=== PATIENT | female | born 1985 | race African-American/Black ===

== ENCOUNTER 2021-04-01 13:54 | Emergency (ER) | payer OTHER, SELFPAY ==
[2021-04-01 13:58] VITALS: BP 137/68; PULSE 99; RESP 16; TEMP 36.8; O2SAT 100; BMI 52.7
--- NOTE | 2021-04-01 14:31 | ED.PREGNANCY ---
HPI - General Chief complaint: OB Stated complaint: Back pain 31 weeks Time Seen by Provider: 04/01/21 14:29 Source: patient Mode of arrival: ambulatory Limitations: no limitations History of Present Illness HPI Narrative: 35-year-old female currently 31 weeks here with complaints of 2 hours of lower back pain with pelvic cramping and pressure. No vaginal bleeding, urinary symptoms, vomiting, diarrhea, fevers or chills. Patient is due 913 for a scheduled . She is followed by [facility]. She is . She does have a history of high blood pressure and is on nifedipine, depression, iron deficiency anemia and GERD. Related Data Allergies Allergy/AdvReac Type Severity Reaction Status Date / Time No Known Allergies Allergy Verified 04/01/21 14:04 Review of Systems Review of Systems: Yes all other systems are reviewed and are negative Constitutional: Constitutional: Reports no additional constitutional complaints, Denies body ache(s), Denies chills, Denies fever(s), Denies headache(s) and Denies weakness Eyes: Eyes: Reports no additional eye complaints and Denies change in vision ENT: Reports system reviewed and no additional complaints, except as documented, Denies dizziness, Denies headache(s), Denies nasal congestion, Denies nasal discharge and Denies neck pain Cardiovascular: Cardiovascular: Reports no additional cardiovascular complaints, Denies chest pain, Denies leg edema and Denies dyspnea Respiratory: Respiratory: Reports no additional respiratory complaints, Denies cough and Denies dyspnea Gastrointestinal: Gastrointestinal: Reports no additional gastrointestinal complaints, Denies abdominal pain, Denies diarrhea, Denies nausea and Denies vomiting Genitourinary: Genitourinary: Reports no additional female genitourinary complaints, Denies abnormal vaginal bleeding, Denies urinary incontinence and Denies vaginal discharge Comments: Pelvic pressure and cramping Musculoskeletal: Musculoskeletal: Reports no additional musculoskeletal complaints, Reports back pain, Denies arthralgias, Denies joint swelling, Denies neck pain, Denies numbness and Denies tingling Integumentary/Breasts: Skin/Breast: Reports system reviewed and no additional complaints, except as docu and Denies rash Neurologic: Reports system reviewed and no additional complaints, except as documented, Denies Abnormal speech present, Denies dizziness, Denies headache(s), Denies numbness, Denies tingling and Denies weakness PMFSH Past Medical History Attestation statement: The following information was validated with the patient. Source: old records reviewed and nursing notes reviewed Medical History Depression Hypertension Social History Social History Advance Directives: No Advance Directives Information Provided: Yes Patient : Yes Physical Exam Vital Signs: Vital Signs: Last Vital Signs Temp 98.3 F 04/01/21 13:58 Pulse 99 04/01/21 13:58 Resp 16 04/01/21 13:58 BP 137/68 04/01/21 13:58 Pulse Ox 100 04/01/21 13:58 Body Mass Index 52.7 Const: General: cooperative, healthy appearing, comfortable and no acute distress Orientation/consciousness: patient oriented x3 Limitations: no limitations HENMT: Head: Yes normal to inspection Ears: hearing grossly normal bilaterally General nose exam: Normal external nose present Face and sinus: Yes normal facial exam Mouth: Normal oral and palatal mucosa present Throat: Yes posterior oropharynx normal Eyes: General: appearance normal, both eyes and all related structures Pupils: Equal, round and reactive pupils present Neck: Neck: Yes normal visual inspection Chest: Chest palpation & inspection: normal inspection of the chest Resp: Effort & Inspection: normal respiratory effort Auscultation: clear to auscultation bilaterally Cardio: Rate: regular rate Rhythm: regular rhythm Peripheral pulses: Peripheral pulses 2+ throughout GI: Inspection: Yes normal to inspection Palpation (GI): Soft to palpation and nontender Auscultation: normal bowel sounds : Other: Cervix closed No bleeding Extractive Metallurgist steve Back/Spine/Pelvis: Thoracic/Lumbar Spine: thoracic and lumbar spine normal to inspection Skin: General skin exam: no rashes or lesions noted Neuro: General: patient oriented x3, no focal motor deficits and normal sensation to monofilament Cranial nerves: Yes Equal, round and reactive pupils present Cognition (Neuro): normal cognition Speech: No Abnormal speech present Gait exam (Neuro): Normal gait present Motor exam (neuro): 5/5 motor strength present throughout Extrem: General: Yes normal to inspection, Yes no pedal edema and Yes no calf tenderness Course Course Course Narrative: [id number]-old female currently 31 weeks here with complaints of low back pain, pelvic cramping and pressure for the last 2 hours with no associated vaginal bleeding. On sterile exam cervix closed (community engagement representative steve). No focal abdominal pain. Hemodynamically stable. heart tones 150. Patient followed by [facility] OB. Concern for labor. Will call and discuss with Ob-called transfer line. 1505-Call back from [facility] transfer line. Spoke to Dr. Villalba who accepted patient for rule out labor. Patient was offered an ambulance and it was strongly recommended that she go to via ambulance. She declined this. Patient to go direct there. Discharge Plan Discharge Clinical Impression: Premature labor Patient Disposition: [facility] Transfer Details: [facility]-w2 Instructions: Labor (ED) Additional Instructions: go direct to [facility] w2-Dr Villalba
== END 2021-04-01 15:35 | disposition short-term general hospital (02) ==
PROVIDERS: Emergency Provider Emergency Medicine
DX: O60.03 Preterm labor without delivery, third trimester (principal); O99.013 Anemia complicating pregnancy, third trimester; D50.9 Iron deficiency anemia, unspecified; O16.3 Unspecified maternal hypertension, third trimester; O09.523 Supervision of elderly multigravida, third trimester; Z3A.31 31 weeks gestation of pregnancy; Z79.899 Other long term (current) drug therapy
CPT/HCPCS: 99285

== ENCOUNTER 2022-08-13 09:03 | Emergency (ER) | payer OTHER, SELFPAY ==
[2022-08-13 09:06] VITALS: BP 136/85; PULSE 76; RESP 18; TEMP 36.6; O2SAT 99; BMI 52.4
--- NOTE | 2022-08-13 09:36 | ED.BACK ---
HPI - Back Pain/Injury General Chief Complaint: Back Pain/Injury Stated Complaint: Back Spasms Hip Pain Time Seen by Provider: 08/13/22 09:18 Source: patient Mode of arrival: ambulatory Limitations: no limitations History of Present Illness HPI Narrative: 37yoF c PMHx of HTN, Depression and chronic back pain with sciatica was presenting to the ER with complaints of atraumatic lower back pain radiating to her right thigh with right lateral aspect thigh numbness. She reports that this has been present for approximately 2-3 days and is worsening. She reports she has been taking ibuprofen every 6 hours and Tylenol as well and no symptomatic relief. She reports she has had the symptoms in the past. The right side numbness is new. She reports she can feel her leg although it just feels numb internally in one spot of the thigh. Otherwise she denies any fevers, chills, chest pain or shortness of breath, flank pain, abdominal pain, dysuria, hematuria, abnormal vaginal discharge, black or bloody stools, urinary or bowel incontinence or retention, saddle anesthesias, recent falls or trauma, history of IV drug use, rashes or any other symptoms complaints or concerns at this time. MD elicited complaint: back pain Pertinent past history: prior back pain Onset (ago): day(s) (2-3 days worse today) Timing: constant Severity: moderate Similar Symptoms Previously: Yes Quality: aching and spasming Radiation: left upper leg Exacerbating factors: movement, sitting upright, walking and lifting Relieving factors: none Context: unknown Associated symptoms: numbness (Right Thigh lateral aspect ) Treatments prior to arrival: NSAIDS and acetaminophen Work related injury: No Related Data Previous Rx's Medication Instructions Recorded cyclobenzaprine 10 mg tablet 10 mg PO Q8H #14 tabs 08/13/22 ibuprofen 800 mg tablet 800 mg PO Q8H PRN pain #14 tabs 08/13/22 lidocaine HCl 4 % topical cream 1 appl topical BID PRN pain #120 08/13/22 (Aspercreme (lidocaine HCl)) grams oxycodone 5 mg tablet 5 mg PO Q6H PRN pain #14 tabs 08/13/22 prednisone 20 mg tablet 40 mg PO DAILY inflammation 5 days 08/13/22 #10 tabs Allergies Allergy/AdvReac Type Severity Reaction Status Date / Time No Known Allergies Allergy Verified 04/01/21 14:04 Review of Systems Review of Systems: Constitutional : No trauma, No Weight loss, No Fever, No Chills, ENT/Mouth : No Hearing loss, No Ear Pain, No Nasal Congestion, No Sinus Pain, No Hoarseness, No sore throat, No Rhinorrhea, No Swallowing Difficulty Cardiovascular : No Chest Pain, No SOB Respiratory : No Cough, No Dyspnea Gastrointestinal : No Nausea, No Vomiting, No Diarrhea, No abdominal Pain, No Hematochezia, No Melena Genitourinary : No Dysuria, No Urinary Frequency, No Hematuria, No Urinary or Bowel Incontinence/retention Musculoskeletal : + Back pain, No neck pain, No joint stiffness, No joint swelling Skin : No Skin Lesions, No rash or signs of infection Neuro : No Weakness, + right leg/thigh radiation, + Numbness, No headache, no loss of bowel or bladder incontinence, no saddle anesthesia, Focal weakness Denies history of IV drug usage. Yes all other systems are reviewed and are negative PMFSH Past Medical History Attestation statement: The following information was validated with the patient. Source: old records reviewed and nursing notes reviewed Medical History Depression Hypertension Social History Social History Advance Directives: No Advance Directives Information Provided: No Physical Exam Vital Signs: Vital Signs: Last Vital Signs Temp 97.9 F 08/13/22 09:06 Pulse 76 08/13/22 09:06 Resp 18 08/13/22 09:06 BP 136/85 08/13/22 09:06 Pulse Ox 99 08/13/22 09:06 O2 Del Method 08/13/22 09:06 BMI result Body Mass Index 52.4 vital signs have been reviewed as normal and appeared to be correct. Blood pressure normal. Heart rate normal. Respiration rate normal. Temperature normal. Oxygen saturation normal. Appearance: Alert. Oriented X3. No acute distress. Head: Normal external exam. Normocephalic. Atraumatic. No Ingram signs noted. No raccoon eyes noted Eyes: PERRLA. EOMI. Conjunctiva and sclera normal. Eyelids normal. ENT: EAC normal. TM's Normal. Pharynx normal. Uvula midline. Moist mucous membranes. No trismus noted. No drooling noted. No muffled voice noted. Neck: Normal inspection. Neck supple. FROM. No adenopathy. Thyroid Normal. No meningeal signs. No neck mass noted. CVS: Normal heart rate and rhythm. Heart sound normal. No murmurs noted. Pulses normal throughout. Respiratory: No respiratory distress. Painless inspiration. Breath sounds normal. No wheezes/rales/rhonchi noted. Chest nontender. No accessory muscle usage noted or decreased air movement noted. Abdomen: Soft and nontender. Bowel sounds normal in all 4 quadrants. No distention noted. No organomegaly noted. No visible injury noted. Back: No CVA tenderness. Full range of motion noted. No obvious deformities, or edema. Mild para-spinal muscular tenderness from lumbar region to coccyx. Full ROM in back and lower extremities. 5/5 strength hip extension/flexion, abduction, adduction. Mild Lumbar pain with hip flexion against resistance. Straight leg raise test negative on right; Straight leg raise test negative on left; Reflexes normal ankle and knee bilaterally; EHL motor strength normal bilaterally. No rashes/lesion/induration/fluctuance or signs infection noted. Skin: Skin warm and dry. Normal skin color. Normal skin turgor. No rashes/lesions/lacerations noted. Extremities: No lower extremity edema. Extremities exhibit normal range of motion. Extremities nontender. Neuro: Oriented X 3. No motor deficit. No sensory deficit. Reflexes normal. Patient has a normal steady gait. Course Course Course Narrative: Pt c likely muscular pain, but could be herniated disc. Neuro exam shows no deficits. Not c/w AAA/epidural abscess/dissection.No high risk Hx (Incont, fever, immunosupp, recent surgery/LP, coag, signif trauma, wt loss, puls mass, hx/o Ca, TB, or IVDU) to warrant MRI/CT today. Not c/w Pyelo/UTI/kidney stone/spinal fx. Not cauda equina syndrome. Imaging not currently indicated. DC c meds and f/u. MDM - Back Pain/Injury Medical Records Attestation: I reviewed the patient's medical records. Discharge Plan Discharge Clinical Impression: Lumbar radiculopathy Patient Disposition: Home, Self-Care Instructions: Lumbar Radiculopathy (ED), Lower Back Exercises (ED) Prescriptions: New cyclobenzaprine 10 mg tablet 10 mg PO Q8H Qty: 14 0RF ibuprofen 800 mg tablet 800 mg PO Q8H PRN (Reason: pain) Qty: 14 0RF oxycodone 5 mg tablet 5 mg PO Q6H PRN (Reason: pain) Qty: 14 0RF Rx Instructions: Partial Fill upon patient request. lidocaine HCl [Aspercreme (lidocaine HCl)] 4 % cream 1 appl topical BID PRN (Reason: pain) Qty: 120 0RF prednisone 20 mg tablet 40 mg PO DAILY 5 Days Qty: 10 0RF Referrals: Rosamaria Donato MD [Primary Care Provider] - (your pcp) Stand Alone Forms: Work/School Release
== END 2022-08-13 09:49 | disposition home or self-care (01) ==
PROVIDERS: Emergency Provider Student in an Organized Health Care Education/Training Program; PCP Family Medicine
DX: M54.16 Radiculopathy, lumbar region (principal); M62.838 Other muscle spasm; M54.50 Low back pain, unspecified; Z79.899 Other long term (current) drug therapy
CPT/HCPCS: 99282

== ENCOUNTER 2023-08-09 07:42 | Emergency (ER) | payer OTHER, SELFPAY ==
--- NOTE | ~2023-08-09 | XR_ITS ---
EXAMINATION: Right shoulder and Right elbow. CLINICAL INDICATION: Pain. COMPARISON: None. TECHNIQUE: Right elbow 3 views. Right shoulder 3 views. FINDINGS: RIGHT SHOULDER: The glenohumeral and AC joint alignment is normal. The joint space is maintained normal. No acute fracture, dislocation or loose body seen. The soft tissues are normal. RIGHT ELBOW: There is no visible acute fracture, dislocation or subluxation. No joint effusion seen. XR/XR shoulder RT min 2V IMPRESSION: Unremarkable right elbow. Unremarkable right shoulder.
--- NOTE | ~2023-08-09 | XR_ITS ---
EXAMINATION: Right shoulder and Right elbow. CLINICAL INDICATION: Pain. COMPARISON: None. TECHNIQUE: Right elbow 3 views. Right shoulder 3 views. FINDINGS: RIGHT SHOULDER: The glenohumeral and AC joint alignment is normal. The joint space is maintained normal. No acute fracture, dislocation or loose body seen. The soft tissues are normal. RIGHT ELBOW: There is no visible acute fracture, dislocation or subluxation. No joint effusion seen. XR/XR elbow RT min 3V IMPRESSION: Unremarkable right elbow. Unremarkable right shoulder.
[2023-08-09 07:45] VITALS: BP 167/99; PULSE 82; RESP 16; TEMP 36.7; O2SAT 99; BMI 53.3
--- NOTE | 2023-08-09 07:56 | ED.GENADULT ---
HPI - General Adult General Chief complaint: Extremity Injury, Lower Stated complaint: R Shoulder Elbow Pain S/P Injury 08/07/23 Time Seen by Provider: 08/09/23 07:55 Source: patient Mode of arrival: ambulatory Limitations: no limitations History of Present Illness HPI narrative: Patient is a 38 year old assigned female at with a history of HTN presenting to the emergency department today with right shoulder and elbow pain. Patient states that 2 days ago she was sitting on the toilet at a hotel when a mirror fell off the wall and landed on her right shoulder and right elbow. Patient denies any head strike or loss of consciousness from the incident. Patient denies any dizziness, lightheadedness, abdominal pain, nausea, vomiting, fever, chills, blurry vision, double vision, loss of vision, chest pain, difficulty breathing, shortness of breath, back pain, night sweats, pain with urination, increased urinary frequency, increased urinary urgency, blood in her urine or stool, syncope or a near syncopal episode, bowel incontinence, bladder incontinence, bowel retention, bladder retention, or any other complaints at this time. Onset (ago): day(s) (2) Location: right and upper extremity Severity: mild Severity scale (1-10): 4 Quality: aching and dull Pain Consistency: constant Relieving factors: none Exacerbating factors: movement Associated symptoms: denies other symptoms Treatments prior to arrival: none Related Data Previous Rx's Medication Instructions Recorded cyclobenzaprine 10 mg tablet 10 mg PO Q8H #14 tabs 08/13/22 ibuprofen 800 mg tablet 800 mg PO Q8H PRN pain #14 tabs 08/13/22 lidocaine HCl 4 % topical cream 1 appl topical BID PRN pain #120 08/13/22 (Aspercreme (lidocaine HCl)) grams oxycodone 5 mg tablet 5 mg PO Q6H PRN pain #14 tabs 08/13/22 prednisone 20 mg tablet 40 mg (2 x 20 mg) PO DAILY 08/13/22 inflammation 5 days #10 tabs cyclobenzaprine 5 mg tablet 5 mg PO TID PRN muscle spasm 7 08/09/23 days #21 tabs Allergies Allergy/AdvReac Type Severity Reaction Status Date / Time No Known Allergies Allergy Verified 04/01/21 14:04 Review of Systems Constitutional: Constitutional: Reports no additional constitutional complaints, Denies chills, Denies fever(s) and Denies night sweats Eyes: Eyes: Reports no additional eye complaints, Denies blurry vision, Denies change in vision, Denies diplopia, Denies eye discharge, Denies loss of vision and Denies eye pain ENT: Denies dizziness Cardiovascular: Cardiovascular: Reports no additional cardiovascular complaints, Denies chest pain, Denies lightheadedness, Denies Loss of Consciousness and Denies dyspnea Respiratory: Respiratory: Reports no additional respiratory complaints and Denies dyspnea Gastrointestinal: Gastrointestinal: Reports no additional gastrointestinal complaints, Denies abdominal pain, Denies melena, Denies hematochezia, Denies change in bowel habits and Denies change in stool character Genitourinary: Genitourinary: Denies hematuria, Denies urinary frequency, Denies dysuria, Denies urinary incontinence, Denies urinary hesitancy and Denies urinary urgency Musculoskeletal: Musculoskeletal: Reports no additional musculoskeletal complaints, Denies numbness and Denies tingling Comments: right shoulder pain, right elbow pain Neurologic: Denies dizziness, Denies loss of vision, Denies numbness and Denies tingling Psychiatric: Psychiatric: Reports no additional psychiatric complaints Endocrine: Endocrine: Reports no additional endocrine complaints Hematologic/Lymphatic: Hematologic/Lymphatic: Reports no additional hematologic/lymphatic complaints Allergic/Immunologic: Allergic/Immunologic: Reports no additional allergic/immunologic complaints PMFSH Past Medical History Attestation statement: The following information was validated with the patient. Source: old records reviewed and nursing notes reviewed Medical History Depression Hypertension Social History Social History Smoked in Last 30 Days: Yes Use of substances other than those prescribed or required for medical reasons: No Advance Directives: Yes Advance Directives Information Provided: Yes Advance Directives on File: No Physical Exam ED Vital Signs: Vital Signs - 24 hr 08/09/23 07:45 08/09/23 08:56 Temperature 98.0 F Pulse Rate 82 76 Respiratory Rate 16 18 Blood Pressure 167/99 H 144/102 H Pulse Oximetry 99 100 Oxygen Delivery Method Room Air Room Air BMI result Body Mass Index 53.3 Const General: cooperative, no acute distress, alert and awake Nutritional Appearance: well nourished Orientation/consciousness: patient oriented x3 Limitations: no limitations HENMT Head: Yes normal to inspection and Yes atraumatic Ears: hearing grossly normal bilaterally and external ears normal General nose exam: Normal external nose present, no nasal discharge noted and no epistaxis Face and sinus: Yes normal facial exam, No abrasion and No laceration Mouth: Normal oral and palatal mucosa present, no drooling and no muffled voice Eyes General: appearance normal, both eyes and all related structures Periorbital: periorbital findings normal Eyelids: Yes eyelids normal Conjunctivae: conjunctivae normal Pupils: Equal, round and reactive pupils present EOM: EOMs intact bilaterally Neck Neck: Yes normal visual inspection, Yes full ROM and Yes no lymphadenopathy Chest Chest palpation & inspection: normal inspection of the chest Resp Effort & Inspection: normal respiratory effort and able to speak in complete sentences GI Inspection: Yes normal to inspection Neuro General: patient oriented x3 and moves all extremities Cranial nerves: Yes Equal, round and reactive pupils present Cognition (Neuro): normal cognition Motor exam (neuro): 5/5 motor strength present throughout Sensory Exam: Normal double simultaneous stimulation for sensation Coordination: [id number] test normal Extrem Other: pain with palpation to the right shoulder and right elbow General: Yes normal to inspection, Yes full ROM and Yes capillary refill normal Psych Appearance: grossly normal Mental Status: mental status grossly normal Affect: normal affect Attitude: cooperative Thought process: Normal thought process present Thought content: Normal thought content present Insight: Good insight present (Psych) Medications Administered Discontinued Medications Generic Name Dose Route Start Last Admin Trade Name Freq PRN Reason Stop Dose Admin Cyclobenzaprine HCl 5 mg 08/09/23 09:06 08/09/23 09:15 Cyclobenzaprine Hcl 5 Mg Tablet PO 08/09/23 09:07 5 mg ONCE ONE Administration Ketorolac Tromethamine 15 mg 08/09/23 09:06 08/09/23 09:16 Ketorolac Tromethamine 15 Mg/Ml Vial IM 08/09/23 09:07 15 mg ONCE ONE Administration Medical Decision Making Medical Decision Making [facility] Narrative: Patient is a 38 year old assigned female at with no reported medical history presenting to the emergency department today with right shoulder and right elbow pain. Patient's physical exam was as noted in the physical exam portion of this note. Patient's right knee and right shoulder x-rays showed no acute process. I explained my physical exam findings as well as all test results to the patient. I answered all questions asked by the patient. I stressed the importance of the patient taking her medication as prescribed. I stressed the importance of the patient following up with her primary care provider. I stressed the importance of the patient returning to the emergency department immediately if her symptoms were to worsen or if she were to develop any dizziness, shortness of breath, difficulty breathing, chest pain, blurry vision, loss of vision, nausea, vomiting, abdominal pain, fever, chills, back pain, or any other complaints. Patient verbalized agreement and understanding with this treatment plan and discharge. Differential Diagnosis Differential Diagnoses: The differential diagnosis associated with the presentation includes Contusion Fracture Sprain Strain Independent Interpretation I performed an independent interpretation of an: Plain X-Ray Interpretation: My interpretation is in agreement with the radiologist's impression of these imaging studies. EXAMINATION: Right shoulder and Right elbow. CLINICAL INDICATION: Pain. COMPARISON: None. TECHNIQUE: Right elbow 3 views. Right shoulder 3 views. FINDINGS: RIGHT SHOULDER: The glenohumeral and AC joint alignment is normal. The joint space is maintained normal. No acute fracture, dislocation or loose body seen. The soft tissues are normal. RIGHT ELBOW: There is no visible acute fracture, dislocation or subluxation. No joint effusion seen. XR/XR shoulder RT min 2V IMPRESSION: Unremarkable right elbow. Unremarkable right shoulder. Dictated By: Fred Senior MD Signed By: Electronically signed by Fred Senior MD 08/09/23 1050 EXAMINATION: Right shoulder and Right elbow. CLINICAL INDICATION: Pain. COMPARISON: None. TECHNIQUE: Right elbow 3 views. Right shoulder 3 views. FINDINGS: RIGHT SHOULDER: The glenohumeral and AC joint alignment is normal. The joint space is maintained normal. No acute fracture, dislocation or loose body seen. The soft tissues are normal. RIGHT ELBOW: There is no visible acute fracture, dislocation or subluxation. No joint effusion seen. XR/XR elbow RT min 3V IMPRESSION: Unremarkable right elbow. Unremarkable right shoulder. Dictated By: Fred Senior MD Signed By: Electronically signed by Fred Senior MD 08/09/23 1053 Radiology Impression Discussion of test interpretation with radiology: I have reviewed the radiologist's reading. Prescription Management I considered prescription management with: Pain Medication (patient prescribed pain medication) Discharge Plan Discharge Clinical Impression: Acute shoulder pain, Elbow pain Patient Disposition: Home, Self-Care Instructions: Shoulder Pain (ED), Arm Pain (ED) Additional Instructions: Follow up with your primary care provider. Return to the emergency department immediately if your symptoms worsen or if you develop any dizziness, shortness of breath, difficulty breathing, chest pain, blurry vision, loss of vision, nausea, vomiting, abdominal pain, fever, chills, back pain, or any other complaints. Prescriptions: New cyclobenzaprine 5 mg tablet 5 mg PO TID PRN (Reason: muscle spasm) 7 Days Qty: 21 0RF No Action cyclobenzaprine 10 mg tablet 10 mg PO Q8H Qty: 14 0RF ibuprofen 800 mg tablet 800 mg PO Q8H PRN (Reason: pain) Qty: 14 0RF oxycodone 5 mg tablet 5 mg PO Q6H PRN (Reason: pain) Qty: 14 0RF Rx Instructions: Partial Fill upon patient request. lidocaine HCl [Aspercreme (lidocaine HCl)] 4 % cream 1 appl topical BID PRN (Reason: pain) Qty: 120 0RF prednisone 20 mg tablet 40 mg PO DAILY 5 Days Qty: 10 0RF Referrals: Rosamaria Donato MD [Primary Care Provider] - Stand Alone Forms: Work/School Release Interventions: ED Discharge Assessment Last Done: 08/09/23 11:16 Discharge Date/Time: 08/09/23 11:17 Print Language: Bhutanese
[2023-08-09 08:56] VITALS: BP 144/102; PULSE 76; RESP 18; O2SAT 100
[2023-08-09] MEDS: Cyclobenzaprine HCl 5 MG TABLET PO (09:15)
[2023-08-09] MEDS: Ketorolac Tromethamine 15 MG/ML VIAL IM (09:16)
== END 2023-08-09 11:17 | disposition home or self-care (01) ==
PROVIDERS: Emergency Provider Emergency Medicine; PCP Family Medicine
DX: M25.511 Pain in right shoulder (principal); M25.521 Pain in right elbow
CPT/HCPCS: 73030; 73080; 96372; 99284; J1885

== ENCOUNTER 2023-09-10 10:33 | Emergency (ER) | payer OTHER, SELFPAY ==
--- NOTE | ~2023-09-10 | XR_ITS ---
EXAMINATION: XR HAND, RIGHT CLINICAL INFORMATION: Pain. COMPARISON: None available. TECHNIQUE: PA, lateral, and oblique views of the right hand. FINDINGS: An avulsion fragment is noted at the lateral margin of the base of the first proximal phalanx, with intra-articular extension. This is somewhat smoothly corticated. No dislocation is seen. The proximal and distal carpal rows are intact. There is a neutral ulnar variance. No focal soft tissue swelling, gas or foreign body is seen. XR/XR hand RT min 3V IMPRESSION: An avulsion fragment with intra-articular extension is seen at the base of the proximal phalanx of the right thumb. This is somewhat well corticated, and it is of indeterminate chronicity. Please correlate with clinical findings.
[2023-09-10 10:42] VITALS: BP 179/108; PULSE 84; RESP 20; TEMP 36; O2SAT 99; BMI 52.6
--- NOTE | 2023-09-10 12:51 | ED.EXTPRO ---
HPI - Extremity Problem General Chief complaint: Extremity Injury, Lower Stated complaint: R hand injury Time Seen by Provider: 09/10/23 11:27 Source: patient Mode of arrival: ambulatory Limitations: no limitations History of Present Illness HPI Narrative: patient is a 38-year-old female who presents emergency department for evaluation of pain to the right thumb and index finger. She reports 2 days ago it accidentally got slammed in the door of her home resulting in pain and swelling. She has a small laceration to the ulnar aspect of the distal index finger with no active bleeding. Denies numbness tingling or cold sensation to the hand. Related Data Previous Rx's Medication Instructions Recorded cyclobenzaprine 10 mg tablet 10 mg PO Q8H #14 tabs 08/13/22 ibuprofen 800 mg tablet 800 mg PO Q8H PRN pain #14 tabs 08/13/22 lidocaine HCl 4 % topical cream 1 appl topical BID PRN pain #120 08/13/22 (Aspercreme (lidocaine HCl)) grams oxycodone 5 mg tablet 5 mg PO Q6H PRN pain #14 tabs 08/13/22 prednisone 20 mg tablet 40 mg (2 x 20 mg) PO DAILY 08/13/22 inflammation 5 days #10 tabs cyclobenzaprine 5 mg tablet 5 mg PO TID PRN muscle spasm 7 08/09/23 days #21 tabs Allergies Allergy/AdvReac Type Severity Reaction Status Date / Time latex Allergy Hives Verified 09/10/23 10:44 Review of Systems Review of Systems: Yes all other systems are reviewed and are negative PMFSH Past Medical History Attestation statement: The following information was validated with the patient. Source: old records reviewed Medical History Depression Hypertension Social History Social History Advance Directives: No Advance Directives Information Provided: No Physical Exam Vital Signs: Vital Signs: Last Vital Signs Temp 96.8 F 09/10/23 10:42 Pulse 84 09/10/23 10:42 Resp 20 09/10/23 10:42 BP 179/108 H 09/10/23 10:42 Pulse Ox 99 09/10/23 10:42 O2 Del Method Room Air 09/10/23 10:42 BMI result Body Mass Index 52.6 Appearance: Alert.?Oriented to person, place and time. No acute distress.?Normal affect. Neck: Normal inspection.? Neck supple.?? CVS: Heart sounds normal. Normal heart rate and rhythm.? Pulses normal.?? Respiratory: No respiratory distress.? Lung sounds clear to auscultation bilaterally?? Skin: Skin warm and dry.? Normal skin color. Right index finger proximal ulnar aspect 1 cm laceration with no active bleeding, superficial, not amenable to suture repair Extremities: tenderness to palpation andlocalized swelling to the base of the right thumb and 2nd digit. Thumb with decreased AROM, index finger with mildly decreased flexion. Neuro: Moves all extremities spontaneously. Sensation intact bilaterally. Ambulates with normal steady gait. Medical Decision Making Medical Decision Making MDM Narrative: Patient is a 38-year-old female who presents emergency department for evaluation of traumatic pain to the right hand as per HPI. No obvious deformity upon examination she does have tenderness to palpation at the base of the thumb and diffuse swelling and tenderness upon palpation to the index finger which has mildly decreased AROM in a laceration that appears well healing and not amenable to any repair. XR reveals an avulsion fragment with intra-articular extension seen at the base of the proximal phalanx of the right thumb. Extremities neurovascularly intact distally Reviewed these findings with patient. She was placed of thumb spica. Advised rest, ice, elevation, acetaminophen / ibuprofen for pain and outpatient follow-up with hand specialist; Dr. Ellis. reviewed worrisome signs and symptoms that would warrant re-evaluation in the emergency department. All questions answered. Stable for discharge. Differential Diagnosis Differential Diagnoses: The differential diagnosis associated with the presentation includes ( as noted above) Consult Healthcare Provider Management of the patient was discussed with: Breakdown Person ( orthopedics) Independent Interpretation I performed an independent interpretation of an: Plain X-Ray ( I personally interpreted XR imaging and agree with radiologist impression.) Radiology Impression Discussion of test interpretation with radiology: I have reviewed the radiologist's reading. Radiologist Impression: XR/XR hand RT min 3V IMPRESSION: An avulsion fragment with intra-articular extension is seen at the base of the proximal phalanx of the right thumb. This is somewhat well corticated, and it is of indeterminate chronicity. Please correlate with clinical findings. Prescription Management I considered prescription management with: Pain Medication Procedures Orthopedic Splinting/Casting Injury #1: Side: right Upper Extremity Injury Location: hand Upper Extremity Immobilizer: thumb spica Discharge Plan Discharge Clinical Impression: Closed fracture of proximal phalanx of thumb Qualifiers: Encounter type: initial encounter Laterality: right Patient Disposition: Home, Self-Care Instructions: Thumb Fracture (ED) Prescriptions: No Action cyclobenzaprine 10 mg tablet 10 mg PO Q8H Qty: 14 0RF ibuprofen 800 mg tablet 800 mg PO Q8H PRN (Reason: pain) Qty: 14 0RF oxycodone 5 mg tablet 5 mg PO Q6H PRN (Reason: pain) Qty: 14 0RF Rx Instructions: Partial Fill upon patient request. lidocaine HCl [Aspercreme (lidocaine HCl)] 4 % cream 1 appl topical BID PRN (Reason: pain) Qty: 120 0RF prednisone 20 mg tablet 40 mg PO DAILY 5 Days Qty: 10 0RF cyclobenzaprine 5 mg tablet 5 mg PO TID PRN (Reason: muscle spasm) 7 Days Qty: 21 0RF Referrals: Kallie Ellis MD [Physician] - Stand Alone Forms: Work/School Release
[2023-09-10 13:24] VITALS: BP 154/93; PULSE 70; RESP 16; TEMP 36.2; O2SAT 100
== END 2023-09-10 13:29 | disposition home or self-care (01) ==
PROVIDERS: Emergency Provider Emergency Medicine
DX: S62.511A Displaced fracture of proximal phalanx of right thumb, initial encounter for closed fracture (principal); Y29.XXXA Contact with blunt object, undetermined intent, initial encounter; Y93.9 Activity, unspecified; Y92.9 Unspecified place or not applicable; Y99.9 Unspecified external cause status
CPT/HCPCS: 29130; 73130; 99283; 99284

== ENCOUNTER 2023-09-25 10:22 | Emergency (ER) | payer OTHER, SELFPAY ==
--- NOTE | ~2023-09-25 | XR_ITS ---
EXAMINATION: XR LUMBAR SPINE XR SACRUM AND COCCYX CLINICAL INFORMATION: Back pain, fall. COMPARISON: None available. TECHNIQUE: Three views of the lumbar spine, 3 views of the sacrum and coccyx. FINDINGS: The vertebral bodies and posterior elements are normal. The disc spaces are preserved and the vertebral alignment is normal. The paraspinal soft tissues are normal. There may be a minimally displaced fracture at the sacral-coccyx junction. XR/XR lumbar spine 2-3V IMPRESSION: 1. Possible minimally displaced fracture at the sacral-coccyx junction. 2. Unremarkable examination of the lumbar spine.
--- NOTE | ~2023-09-25 | XR_ITS ---
EXAMINATION: XR LUMBAR SPINE XR SACRUM AND COCCYX CLINICAL INFORMATION: Back pain, fall. COMPARISON: None available. TECHNIQUE: Three views of the lumbar spine, 3 views of the sacrum and coccyx. FINDINGS: The vertebral bodies and posterior elements are normal. The disc spaces are preserved and the vertebral alignment is normal. The paraspinal soft tissues are normal. There may be a minimally displaced fracture at the sacral-coccyx junction. XR/XR sacrum coccyx min 2V IMPRESSION: 1. Possible minimally displaced fracture at the sacral-coccyx junction. 2. Unremarkable examination of the lumbar spine.
[2023-09-25 10:53] VITALS: BP 136/91; PULSE 78; RESP 14; TEMP 37.1; O2SAT 98; BMI 52.5
--- NOTE | 2023-09-25 12:18 | ED.GENADULT ---
HPI - General Adult General Chief complaint: Back Pain/Injury Stated complaint: Fall/Tailbone pain Time Seen by Provider: 09/25/23 12:07 Source: patient Mode of arrival: ambulatory Limitations: no limitations History of Present Illness HPI narrative: 38-year-old female presents with pmh of HTN and depression to ED for low back buttock pain since September 15. patient states she was standing on a chair and she slipped and fell onto her buttock on September 15. Patient denies hitting her head or loss of consciousness. Patient states there was swelling in sacral area that improved with ice pack and Motrin but pain still persists presently. Patient denied any loss of consciousness or any other complaints. Patient states no rectal bleeding, vomiting blood, bloody urine, or abdominal pain. patient denies any urinary / bowel incontinence Related Data Previous Rx's Medication Instructions Recorded cyclobenzaprine 10 mg tablet 10 mg PO Q8H #14 tabs 08/13/22 ibuprofen 800 mg tablet 800 mg PO Q8H PRN pain #14 tabs 08/13/22 lidocaine HCl 4 % topical cream 1 appl topical BID PRN pain #120 08/13/22 (Aspercreme (lidocaine HCl)) grams oxycodone 5 mg tablet 5 mg PO Q6H PRN pain #14 tabs 08/13/22 prednisone 20 mg tablet 40 mg (2 x 20 mg) PO DAILY 08/13/22 inflammation 5 days #10 tabs cyclobenzaprine 5 mg tablet 5 mg PO TID PRN muscle spasm 7 08/09/23 days #21 tabs naproxen 500 mg tablet 500 mg PO BID PRN pain 7 days #14 09/25/23 tabs Allergies Allergy/AdvReac Type Severity Reaction Status Date / Time latex Allergy Hives Verified 09/10/23 10:44 Review of Systems Review of Systems: Low back pain buttock pain Yes all other systems are reviewed and are negative PMFSH Past Medical History Onset Date is defined in the Problem List Problems that require an onset date and time if occurred within 24 hrs of arrival to the ED Aortic Dissection and Rupture; Neurologic impairment; Cardiopulmonary Arrest; Endotracheal Intubation; Insertion or Replacement of Mechanical Circulatory Assist Device Medical History Depression Hypertension Social History Social History Advance Directives: No Physical Exam ED Vital Signs: Vital Signs - 24 hr 09/25/23 10:53 Temperature 98.7 F Pulse Rate 78 Respiratory Rate 14 Blood Pressure 136/91 H Pulse Oximetry 98 Oxygen Delivery Method Room Air BMI result Body Mass Index 52.5 Const General: cooperative, healthy appearing, comfortable, no acute distress, well developed, alert, awake and Physically active Orientation/consciousness: oriented to person, oriented to place, oriented to time and patient oriented x3 HENMT Head: Yes normal to inspection, Yes No palpable skull fracture present, Yes normocephalic and Yes atraumatic Eyes General: appearance normal, both eyes and all related structures Neck Neck: Yes normal visual inspection, Yes full ROM, Yes no lymphadenopathy, Yes no meningeal signs, Yes trachea midline, Yes supple, No anterior neck swelling and No tender Chest Chest palpation & inspection: normal inspection of the chest and normal palpation of entire chest wall Resp Effort & Inspection: normal respiratory effort and able to speak in complete sentences Auscultation: clear to auscultation bilaterally Cardio Jugular venous distension: no JVD Heart sounds: S1 normal heart sound present and S2 normal heart sound present GI Inspection: Yes normal to inspection Palpation (GI): Soft to palpation, not firm, nontender, no guarding and not rigid General: No no CVA tenderness Back/Spine/Pelvis Back: No no CVA tenderness and back tenderness (lumbar and sacrum/coccyx tender) Skin General skin exam: no rashes or lesions noted, elasticity normal and turgor normal Neuro General: oriented to person, oriented to place, oriented to time, patient oriented x3, gait normal, tone normal, moves all extremities, Normal light touch and pain sensation, no meningeal signs, no focal motor deficits, CN's II-XI intact bilaterally and normal sensation to monofilament Extrem General: Yes normal to inspection and Yes full ROM Psych Appearance: grossly normal, well kempt and not disheveled Medical Decision Making Medical Decision Making MDM Narrative: 38-year-old female history of depression hypertension presents ED for buttock low back pain after fall onto buttock from a chair September 15. Patient denies any head trauma. Patient denies any urinary / bowel incontinence nausea, vomiting, abdominal pain, rectal bleeding, bloody urine, vomiting blood. Patient denies any paralysis weakness of lower extremities. Patient is sent for x-rays. 2:36pm: patient positive for small sacral coccyx fracture. Negative for any signs of neuro deficits lower extremities. Patient denies any urinary / bowel incontinence. Patient has normal gait. Negative for signs of hematoma on evaluation of spine and sacral coccyx area. Spoke with orthopedic COLLIN Porter who states patient can follow-up with Dr. Day co founder and president for follow-up. Patient is safe for discharge. Patient explained worrisome signs. Differential Diagnosis Differential Diagnoses: The differential diagnosis associated with the presentation includes ( Lumbar spine fracture, sacral coccyx fracture.) Admission/Observation Consideration of admission/observation: Escalation of care including admission/observation considered Consult Healthcare Provider Management of the patient was discussed with: Dental Equipment Repairer ([facility]) Independent Interpretation I performed an independent interpretation of an: Plain X-Ray Radiology Impression Discussion of test interpretation with radiology: I have reviewed the radiologist's reading. External Record Review External record reviewed: Other ( Prior visit) Prescription Management I considered prescription management with: Pain Medication Discharge Plan Discharge Clinical Impression: Closed fracture of sacrum and coccyx Patient Disposition: Home, Self-Care Instructions: Coccyx Injury (ED), Sacral Fracture (ED) Additional Instructions: please follow-up with Dr. Anderson our co founder and president of [facility]. Return to the ED immediately for any urinary / bowel incontinence, weakness / paralysis/numbness of lower extremities, rectal bleeding, vomiting blood, abdominal pain, chest pain, shortness of breath, headache, or any other concerning symptoms. Prescriptions: New naproxen 500 mg tablet 500 mg PO BID PRN (Reason: pain) 7 Days Qty: 14 0RF No Action cyclobenzaprine 10 mg tablet 10 mg PO Q8H Qty: 14 0RF ibuprofen 800 mg tablet 800 mg PO Q8H PRN (Reason: pain) Qty: 14 0RF oxycodone 5 mg tablet 5 mg PO Q6H PRN (Reason: pain) Qty: 14 0RF Rx Instructions: Partial Fill upon patient request. lidocaine HCl [Aspercreme (lidocaine HCl)] 4 % cream 1 appl topical BID PRN (Reason: pain) Qty: 120 0RF prednisone 20 mg tablet 40 mg PO DAILY 5 Days Qty: 10 0RF cyclobenzaprine 5 mg tablet 5 mg PO TID PRN (Reason: muscle spasm) 7 Days Qty: 21 0RF Referrals: Trish Valdez MD [Physician] - (Sacrum-Coccyx fracture) Stand Alone Forms: Work/School Release Interventions: ED Discharge Assessment Last Done: 09/25/23 14:47 Discharge Date/Time: 09/25/23 14:48 Print Language: Somali
== END 2023-09-25 14:48 | disposition home or self-care (01) ==
PROVIDERS: Emergency Provider Emergency Medicine
DX: S32.2XXA Fracture of coccyx, initial encounter for closed fracture (principal); W07.XXXA Fall from chair, initial encounter; Y93.9 Activity, unspecified; Y92.9 Unspecified place or not applicable; Y99.9 Unspecified external cause status; M54.50 Low back pain, unspecified
CPT/HCPCS: 72100; 72220; 99283

== ENCOUNTER 2023-09-28 10:04 | Outpatient (REF) | payer OTHER, SELFPAY ==
--- NOTE | ~2023-09-28 | XR_ITS ---
EXAMINATION: XR HAND, RIGHT CLINICAL INFORMATION: Pain in right hand. Patient states pain 1st and 2nd digit. COMPARISON: Right hand 09/10/2023. TECHNIQUE: Four views of the right hand. FINDINGS: Redemonstration of an avulsion fracture at the lateral aspect of the base of the 1st proximal phalanx with intra-articular extension. Fracture fragment again appears somewhat corticated with smooth margins. Mild degenerative changes in the 1st carpometacarpal joint with joint space narrowing and hypertrophic change. XR/XR hand RT min 3V IMPRESSION: Similar appearance of a mildly displaced avulsion fracture at the lateral aspect of the base of the 1st proximal phalanx with intra-articular extension. Similar appearance of corticated margins of fracture fragment and subjacent margin of proximal phalanx suggesting indeterminate chronicity, age of fracture. Correlation with clinical exam and history recommended to determine further management.
== END 2023-09-28 10:05 | disposition home or self-care (01) ==
LOC: HO.HOSX 10:04
PROVIDERS: Visit Provider Physician Assistant
DX: Z13.89 Encounter for screening for other disorder (principal)

== ENCOUNTER 2023-09-30 14:07 | Outpatient (AMB) | payer OTHER, SELFPAY ==
--- NOTE | 2023-09-30 14:18 | A.OFFVIS_ITS ---
Intake Vital Signs 09/30/23 14:32 Height 5 ft 7 in Weight 335 lb BMI 52.5 Intake Visit Reasons: FC- right hand fx, DOI 09/08 Intake Note: Alverto a 38 year old female presents today for an ER follow up of right hand injury, DOI 09/08/23. Patient reports that she smashed her thumb and index finger in a door. Presented to [facility] the following day due to her pain. Currently her thumb pain has improved, however her main concern is her index finger. States she is unable to fully bend her finger down to make a fist. Numbness to the touch, denies tingling. Allergies latex Allergy (Verified 09/30/23 14:32) Hives HPI FC- right hand fx, DOI 09/08 HPI Details 38-year-old female who presents to the [facility] today for an ER follow-up of right-hand injury s/p smashing her thumb and index finger in a door, 09/10/23. She was seen at ED the next day due to her pain. She currently states she has improvement in her thumb pain however she continues to have pain in her index finger. She reports she is unable to fully bend her finger and experiences pressure down to make a fist. She also c/o numbness in her finger to touch. She denies tingling in her fingers. She has not had any hand injury in the past. 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 Review of Systems Const All systems reviewed & are unremarkable except as noted in HPI and below Physical Exam Vital Signs: BMI result Body Mass Index 52.5 Const General: cooperative, healthy appearing, comfortable, no acute distress, well developed and alert Orientation/consciousness: patient oriented x3 HEENT Head: Yes normal to inspection, Yes normocephalic and Yes atraumatic Eyes General: appearance normal, both eyes and all related structures Resp Effort & Inspection: normal respiratory effort and able to speak in complete sentences Cardio Rate: regular rate Peripheral pulses: Peripheral pulses 2+ throughout GI Palpation (GI): Soft to palpation Skin Lesions: no lesions Rashes: no rashes Neuro General: patient oriented x3 Extrem Other: Right thumb: Normal to inspection. She has tenderness over the MCP joint along the ulnar side and slight discomfort with stress testing. No significant laxity. Right index finger: Tenderness over the PIP joint with some scab abrasion along the radial and ulnar side of finger. She is able to fully extend all of her digits with no lag. She can make a full fist. She is completely flexing her index finger but she can passively reach 90 degrees at MCP, 90 degrees at PIP, and 45 degrees at DIP. Results Reviewed Results Reviewed: Xrays were obtained in the office today and personally reviewed by me of the left hand mildly displaced avulsion fracture at the lateral aspect of the base of the 1st proximal phalanx with intra-articular extension Assessment & Plan Assessment & Plan (1) Stiffness of left hand joint: Code(s): M25.642 - Stiffness of left hand, not elsewhere classified (2) Sprain of ulnar collateral ligament of interphalangeal joint of thumb: Code(s): S63.629A - Sprain of interphalangeal joint of unspecified thumb, initial encounter Plan I demonstrated some ROM exercises with her in the office today and stressed the importance of working with them throughout the day to improve her ROM. She was also given a Velcro thumb spica splint which she will wear with activities only. She was given a onetime prescription for tramadol in the office today. She will contact Dr. Myers for an appointment for her tailbone injury. Orders: Orders XR hand RT min 3V 09/30/23 M79.641 - Pain in right hand OT Evaluation and Treatment 09/30/23 M25.642 - Stiffness of left hand, not elsewhere classified, S63.629A - Sprain of interphalangeal joint of unspecified thumb, initial encounter Medications: New tramadol 50 mg PO BEDTIME 7 days 7 tabs 0RF Patient Instructions: Scribed for Sheridan Thomas PA-C, by James Luu director medical surgical, on 09/30/2023 at 2:30 PM EST. I, Ta-Lisa Meuse, PA-C, have personally reviewed and agree with the information entered by the scribe. Coding Level of Care Code New Pt Level 3 (65467) Diagnoses Stiffness of left hand joint M25.642 Sprain of ulnar collateral ligament of interphalangeal joint of thumb S63.627D
[2023-09-30 14:32] VITALS: BMI 52.5
== END 2023-09-30 14:58 | disposition home or self-care (01) ==
PROVIDERS: Visit Provider Physician Assistant
DX: M25.642 Stiffness of left hand, not elsewhere classified (principal); S63.621A Sprain of interphalangeal joint of right thumb, initial encounter
CPT/HCPCS: 99204

== ENCOUNTER → 2023-09-30 14:07 | Outpatient (BNVA) | payer OTHER, SELFPAY | PROVIDERS: Visit Provider Physician Assistant | DX: S63.6 Other and unspecified sprain of finger(s) (principal); M25.642 Stiffness of left hand, not elsewhere classified | CPT/HCPCS: 73130; 99202 ==

== ENCOUNTER 2023-10-13 09:39 | Outpatient (REF) | payer OTHER, SELFPAY ==
--- NOTE | ~2023-10-13 | XR_ITS ---
EXAMINATION: XR PELVIS CLINICAL INFORMATION: Fracture COMPARISON: 09/25/2023 TECHNIQUE: AP view of the pelvis. FINDINGS: No acute fracture. Pelvic enthesopathy. Sacroiliac joints are preserved. Known probable sacral fracture is better seen on same-day sacral films. XR/XR pelvis min 3V IMPRESSION: Known probable sacral fracture is better seen on same-day sacral films. No acute pelvic fracture
--- NOTE | ~2023-10-13 | XR_ITS ---
EXAMINATION: XR SACRUM AND COCCYX CLINICAL INFORMATION: Sacral fracture COMPARISON: 09/25/2023 TECHNIQUE: 2 views of the sacrum and 2 views of the coccyx were obtained. FINDINGS: Redemonstration of probable age-indeterminate minimally displaced fracture at the sacral coccygeal junction. Sacroiliac joints are preserved. XR/XR sacrum coccyx min 2V IMPRESSION: Redemonstration of probable age-indeterminate minimally displaced fracture at the sacral coccygeal junction.
== END 2023-10-13 09:40 | disposition home or self-care (01) ==
LOC: HO.HOSX 09:39
PROVIDERS: Visit Provider Physical Medicine & Rehabilitation
DX: S32.10XA Unspecified fracture of sacrum, initial encounter for closed fracture (principal); S32.2XXA Fracture of coccyx, initial encounter for closed fracture
CPT/HCPCS: 72190; 72220; 99202

== ENCOUNTER 2023-10-13 11:50 | Outpatient (AMB) | payer OTHER, SELFPAY ==
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
== END 2023-10-13 12:28 | disposition home or self-care (01) ==
PROVIDERS: Visit Provider Physical Medicine & Rehabilitation
DX: S32.2XXA Fracture of coccyx, initial encounter for closed fracture (principal)
CPT/HCPCS: 99204

== ENCOUNTER → 2025-05-04 09:31 | Outpatient (BNV) | payer OTHER, SELFPAY | PROVIDERS: Emergency Provider Emergency Medicine; PCP Family Medicine; Visit Provider Radiology Vascular & Interventional Radiology | DX: M25.511 Pain in right shoulder (principal); X50.0XXA Overexertion from strenuous movement or load, initial encounter | CPT/HCPCS: 73030 ==

== ENCOUNTER 2025-05-04 10:10 | Emergency (ER) | payer OTHER, SELFPAY ==
--- NOTE | ~2025-05-04 | XR_ITS ---
CLINICAL HISTORY: painful injured 4 view right shoulder Comparison: None provided Findings: No fractures or dislocations. Mild degenerative changes of the glenohumeral and acromioclavicular joints. No erosions. No radiopaque foreign body. IMPRESSION: 1. No acute findings 2. Mild degenerative changes. This document has been electronically signed by: David Kidd MD on 05/04/2025 11:05:25
[2025-05-04 10:15] VITALS: BP 139/92; PULSE 87; RESP 18; TEMP 36.6; O2SAT 99; BMI 53.4
--- NOTE | 2025-05-04 10:25 | ED_ITS ---
HPI - Extremity Problem General Chief complaint: Extremity Injury, Upper Stated complaint: R shoulder pain Time Seen by Provider: 05/04/25 10:24 Source: patient Mode of arrival: ambulatory Limitations: no limitations History of Present Illness ED Provider: Thania Olivares APRN HPI Narrative: This is a 40-year-old female who is right-hand dominant who presents the ER with complaints of right-sided shoulder pain for the last 2 weeks. Patient reports that she was going down stairs holding onto a railing when she caught herself causing a jerking sensation of her right shoulder. Since then she has dealt with intermittent pain. She is taking Flexeril 10 mg 1-2 who times daily and ibuprofen 800 mg on days that she works with continued pain. She denies any radiation of pain. No associated numbness, tingling, weakness, redness or swelling of the extremity. She denies any previous injuries. 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 She also has a young child at home that she lifts. She has not been able to rest the extremity much. Related Data Home Medications ?Medication ?Instructions ?Recorded ?Confirmed prazosin 1 mg capsule 1 mg PO BEDTIME 09/30/2310/05 sertraline 100 mg tablet 100 mg PO DAILY 09/30/2310/05 Previous Rx's ?Medication ?Instructions ?Recorded ibuprofen 800 mg tablet 800 mg PO Q8H PRN pain #14 t abs 08/13/22 lidocaine HCl 4 % topical cream 1 appl topical BID PRN pain #120 08/13/22 (Aspercreme (lidocaine HCl)) grams cyclobenzaprine 5 mg tablet 5 mg PO TID PRN muscle spa sm 7 08/09/23 days #21 tabs naproxen 500 mg tablet 500 mg PO BID PRN pain 7 day s #14 09/25/23 tabs tramadol 50 mg tablet 50 mg PO BEDTIME 7 days #7 t abs 09/30/23 cyclobenzaprine 10 mg tablet 10 mg PO TID PRN muscle s pasm #15 05/04/25 tabs ibuprofen 800 mg tablet 800 mg PO Q8H PRN pain #30 t abs 05/04/25 Allergies Allergy/AdvReac Type Severity Reaction Status Date / Time latex Allergy Hives Verified 05/04/25 10:17 Review of Systems Review of Systems: Yes all other systems are reviewed and are negative Constitutional: Constitutional: Reports no additional constitutional complaints, Denies body ache(s), Denies chills, Denies fever(s), Denies headache(s) and Denies weakness Eyes: Eyes: Reports no additional eye complaints and Denies change in vision ENT: Reports system reviewed and no additional complaints, except as document ed, Denies dizziness, Denies headache(s), Denies nasal congestion, Denies nasal discharge and Denies neck pain Cardiovascular: Cardiovascular: Reports no additional cardiovascular complaints, Denies chest pain, Denies leg edema and Denies dyspnea Respiratory: Respiratory: Reports no additional respiratory complaints, Denies cough and Denies dyspnea Gastrointestinal: Gastrointestinal: Reports no additional gastrointestinal complaints, Denies abdominal pain, Denies diarrhea, Denies nausea and Denies vomiting Genitourinary: Genitourinary: Reports no additional female genitourinary complaints and Denies urinary incontinence Musculoskeletal: Musculoskeletal: Reports no additional musculoskeletal complaints, Denies back pain, Reports arthralgias, Denies joint swelling, Denies limited range of motion, Denies neck pain, Denies numbness and Denies tingling Integumentary/Breasts: Skin/Breast: Reports system reviewed and no additional complaints, except as docu and Denies rash Neurologic: Reports system reviewed and no additional complaints, except as documented, Denies Abnormal speech present, Denies dizziness, Denies headache(s), Denies numbness, Denies tingling and Denies weakness PMFSH Past Medical History Attestation statement: The following information was validated with the patient. 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 Physical Exam Vital Signs: Vital Signs: Last Vital Signs Temp 98.4 F 05/04/25 11:26 Pulse 86 05/04/25 11:26 Resp 18 05/04/25 11:26 BP 154/78 H 05/04/25 11:26 Pulse Ox 94 05/04/25 11:26 O2 Del Method Room Air 05/04/25 11:26 BMI result Body Mass Index 53.4 Const: General: cooperative, healthy appearing, comfortable and no acute distress Orientation/consciousness: patient oriented x3 Limitations: no limitations HEENT: Head: Yes normal to inspection Ears: hearing grossly normal bilaterally General nose exam: Normal external nose present Face and sinus: Yes normal facial exam Mouth: Normal oral and palatal mucosa present Throat: Yes posterior oropharynx normal Eyes: General: appearance normal, both eyes and all related structures Pupils: Equal, round and reactive pupils present Neck: Neck: Yes normal visual inspection Chest: Chest palpation & inspection: normal inspection of the chest Resp: Effort & Inspection: normal respiratory effort Auscultation: clear to auscultation bilaterally Cardio: Rate: regular rate Rhythm: regular rhythm Peripheral pulses: Peripheral pulses 2+ throughout GI: Inspection: Yes normal to inspection Palpation (GI): Soft to palpation and nontender Auscultation: normal bowel sounds Back/Spine/Pelvis: Thoracic/Lumbar Spine: thoracic and lumbar spine normal to inspection Skin: General skin exam: no rashes or lesions noted Neuro: General: patient oriented x3, no focal motor deficits and normal sensation to monofilament Cranial nerves: Yes Equal, round and reactive pupils present Cognition (Neuro): normal cognition Speech: No Abnormal speech present Gait exam (Neuro): Normal gait present Motor exam (neuro): 5/5 motor strength present throughout Extrem: Other: There is pain on palpation to the right trapezius with palpable muscle spasm. There is also pain on palpation over the superior right shoulder. There is pain with abduction of the right upper extremity. I do not appreciate any weakness. There is normal sensation. There are 2+ radial and ulnar pulses.There is no swelling or warmth or redness noted. General: Yes normal to inspection Medications Administered Discontinued Medications Generic Name Dose Route Start Last Admin Trade Name Freq PRN Reason Stop Dose Admin Ketorolac Tromethamine 15 mg 05/04/25 10:46 05/04/25 11:13 Ketorolac Tromethamine 15 Mg/Ml Vial IM 05/04/25 10:47 15 mg ONCE ONE Administration Medical Decision Making Medical Decision Making MDM Narrative: This is a 40-year-old female who is right-hand dominant who presents the ER with complaints of right-sided shoulder pain for the last 2 weeks. Patient reports that she was going down stairs holding onto a railing when she caught herself causing a jerking sensation of her right shoulder. Since then she has dealt with intermittent pain. She is taking Flexeril 10 mg 1-2 who times daily and ibuprofen 800 mg on days that she works with continued pain. She denies any radiation of pain. No associated numbness, tingling, weakness, redness or swelling of the extremity. She denies any previous injuries. 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 She also has a young child at home that she lifts. She has not been able to rest the extremity much. There is pain on palpation to the right trapezius with palpable muscle spasm. There is also pain on palpation over the superior right shoulder. There is pain with abduction of the right upper extremity. I do not appreciate any weakness. There is normal sensation. There are 2+ radial and ulnar pulses.There is no swelling or warmth or redness noted. Will obtain x-ray, provide analgesia Differential Diagnosis Differential Diagnoses: The differential diagnosis associated with the presentation includes Sprain, strain Low suspicion for fracture, dislocation, vascular injury, septic joint Admission/Observation Consideration of admission/observation: Escalation of care including admission/observation considered Independent Interpretation I performed an independent interpretation of an: Plain X-Ray Interpretation: I independently viewed the x-ray and agree with the radiology report Radiology Impression Discussion of test interpretation with radiology: I have reviewed the radiologist's reading. Radiologist Impression: [address] [address] XRay Report Signed Patient: Alverto Lewis MR#: [id number] : 1985 Acct:[id number] Age/Sex: 40 / F ADM Date: 05/04/25 Loc: .ED Attending Dr: Ordering Physician: Live Woodard MD Date of Service: 05/04/25 Procedure(s): XR shoulder RT min 2V Accession Number(s): [id number] cc: ROSAMARIA DONATO MD; Live Woodard MD~ CLINICAL HISTORY: painful injured 4 view right shoulder Comparison: None provided Findings: No fractures or dislocations. Mild degenerative changes of the glenohumeral and acromioclavicular joints. No erosions. No radiopaque foreign body. IMPRESSION: 1. No acute findings 2. Mild degenerative changes. This document has been electronically signed by: David Kidd MD on 05/04/2025 11:05:25 Discharge Plan Discharge Clinical Impression: Muscle strain of right shoulder Patient Disposition: Home, Self-Care Instructions: Muscle Strain (ED), Rotator Cuff Injury Exercises (DC) Additional Instructions: Your x-ray shows some degenerative changes of the joint but no fracture or dislocation Your muscles are very tight and you have muscle spasms around the shoulder Apply heat or ice to the area Gentle stretching Follow-up outpatient with her primary care doctor as you may need to see orthopedics outpatient Prescriptions: New cyclobenzaprine 10 mg tablet 10 mg PO TID PRN (Reason: muscle spasm) Qty: 15 0RF ibuprofen 800 mg tablet 800 mg PO Q8H PRN (Reason: pain) Qty: 30 0RF No Action ibuprofen 800 mg tablet 800 mg PO Q8H PRN (Reason: pain) Qty: 14 0RF lidocaine HCl [Aspercreme (lidocaine HCl)] 4 % cream 1 appl topical BID PRN (Reason: pain) Qty: 120 0RF cyclobenzaprine 5 mg tablet 5 mg PO TID PRN (Reason: muscle spasm) 7 Days Qty: 21 0RF naproxen 500 mg tablet 500 mg PO BID PRN (Reason: pain) 7 Days Qty: 14 0RF prazosin 1 mg capsule 1 mg PO BEDTIME sertraline 100 mg tablet 100 mg PO DAILY tramadol 50 mg tablet 50 mg PO BEDTIME 7 Days Qty: 7 0RF Referrals: Rosamaria Donato MD [Primary Care Provider, Internal Medicine] Stand Alone Forms: Work/School Release Print Language: Afghan
[2025-05-04 11:26] VITALS: BP 154/78; PULSE 86; RESP 18; TEMP 36.9; O2SAT 94
[2025-05-04 11:35] VITALS: BP 154/78; PULSE 86; RESP 18; TEMP 36.9; O2SAT 94
== END 2025-05-04 11:35 | disposition home or self-care (01) ==
PROVIDERS: Emergency Provider Emergency Medicine; PCP Family Medicine
DX: S46.911A Strain of unspecified muscle, fascia and tendon at shoulder and upper arm level, right arm, initial encounter (principal); M25.511 Pain in right shoulder; W10.9XXA Fall (on) (from) unspecified stairs and steps, initial encounter; Y93.9 Activity, unspecified; Y92.9 Unspecified place or not applicable; Y99.8 Other external cause status; Z79.899 Other long term (current) drug therapy; F17.210 Nicotine dependence, cigarettes, uncomplicated
CPT/HCPCS: 73030; 96372; 99284; J1885

== ENCOUNTER 2025-07-19 07:56 | Emergency (ER) | payer OTHER, SELFPAY ==
--- NOTE | ~2025-07-19 | CT_ITS ---
EXAMINATION: CT ANGIOGRAM CHEST CLINICAL INFORMATION: Chest pain. COMPARISON: None available. TECHNIQUE: Multiple axial images were obtained through the chest after the administration of 65 mL of Omnipaque 350 intravenous contrast. Extensive vascular post-processing including two-dimensional and three-dimensional reformatted images were created and reviewed on an independent workstation. SmartPrep technique. This CT examination was performed using dose optimization techniques as appropriate, variously including the following: *Automated exposure control *Adjustment of mA and/or kV according to patient size (this includes techniques or standardized protocols for targeted exams where dose is matched to indication/reason for exam; i.e. extremities or head) *Use of iterative reconstruction technique DLP: 509 mGy-cm FINDINGS: Inadequate smart prepped technique. Patient's breathing motion artifact. Patient's large body habitus. Normal IV contrast enhancement of the lumen in the main pulmonary artery or its main left and right branches and the subsegmental pulmonary branches. No gross intraluminal filling defects. No aneurysm or dissection, thoracic aorta. Heart is not enlarged. No pericardial effusion. Fluid density in the anterior superior mediastinum/thymus region. No pneumomediastinum. No lymphadenopathy, mediastinum or perihilar. No gross consolidation, pleural effusion or pneumothorax. No bronchiectasis. No honeycombing. No gross pulmonary nodules. Nonspecific mildly prominent axillary lymph nodes. Status post cholecystectomy. Multilevel mid to lower thoracic spondylosis. No acute fracture or listhesis. Sternum is intact. No acute rib fracture.. CT/CT angio chest PE protocol IMPRESSION: No acute pulmonary artery emboli. No acute airspace disease. Spondylosis, mid to lower thoracic spine. Fleischner guidelines were followed. Electronically signed by: Wilmer Green MD 07/19/2025 12:36 PM EST
--- NOTE | ~2025-07-19 | XR_ITS ---
EXAMINATION: XR CHEST CLINICAL INFORMATION: CP COMPARISON: None available. TECHNIQUE: PA and lateral views. FINDINGS: Mild prominence of the interstitial markings. No hyperinflation. No consolidation, pleural effusion or pneumothorax. Cardiomediastinal silhouette size is normal. Mild multilevel thoracic spondylosis. Vascular clips in the right upper quadrant abdomen. Patient's large body habitus/obesity. XR/XR chest 2V IMPRESSION: Acute small airway inflammatory processes should be considered in the correct clinical settings. Electronically signed by: Wilmer Green MD 07/19/2025 09:29 AM EST
[2025-07-19 07:58] VITALS: BP 174/96; PULSE 98; RESP 20; TEMP 36.1; O2SAT 96; BMI 51.7
--- NOTE | 2025-07-19 07:58 | ECG_ITS ---
Test Reason : cp Blood Pressure : */* mmHG Vent. Rate : 92 BPM Atrial Rate : 92 BPM P-R Int : 122 ms QRS Dur : 84 ms QT Int : 344 ms P-R-T Axes : 56 58 29 degrees QTcB Int : 425 ms Normal sinus rhythm Possible Left atrial enlargement Borderline ECG No previous ECGs available Referred By: Generic ED Physician Electronically Signed By: Alex Sims
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
[2025-07-19 08:38] LABS: MANUAL DIFF FLAG NO
[2025-07-19 08:40] LABS: Hematocrit 39.3 % (37.0-47.0); Hemoglobin 12.5 g/dl (12.0-16.0); Imm Gran Abs Auto 0.01 X10*3/uL (0.00-0.03); Imm Gran Pct Auto 0.2 % (0.0-0.4); Lymphocytes Absolute Auto 2.0 X10*3/uL (1.2-4.9); Mean Corpuscular HGB Conc 31.8 g/dl (31.0-35.0); Mean Corpuscular Hemoglobin 26.5 pg (27.0-33.0); Mean Corpuscular Volume 83.3 fL (80.0-98.0); NRBC Abs Auto 0.000 X10*3/uL (0.0-0.012); NRBC Pct Auto 0.0 /100WBC (0.0-0.2); Platelet Count 333 X10*3/uL (160-400); Red Blood Count 4.72 X10*6/uL (4.20-5.50); White Blood Count 6.3 X10*3/uL (4.8-10.8)
[2025-07-19 08:58] LABS: Alanine Aminotransferase 36 U/L (0-31); Albumin Level 3.9 g/dL (3.5-5.0); Alkaline Phosphatase 128 U/L (39-117); Anion Gap 11 (12-20); Aspartate Amino Transferase 35 U/L (5-31); Blood Urea Nitrogen 11 mg/dL (9-16); Calcium 8.7 mg/dL (8.4-10.2); Carbon Dioxide 25 mmol/L (22-29); Chloride 107 mmol/L (96-108); Creatinine Clr Calc Pharmacy 121.5; Estimated Glomerular Filt Rate > 60; Lipase 9 U/L (8-78); Potassium 4.0 mmol/L (3.3-5.1); Sodium 139 mmol/L (135-145); Total Protein 7.0 g/dL (6.5-8.0)
[2025-07-19 09:32] LABS: Troponin-I High Sensitivity < 2.7 ng/L (<3.5-17.0)
[2025-07-19 09:55] VITALS: BP 141/85; PULSE 79; PULSE 81; RESP 16; O2SAT 100
--- NOTE | 2025-07-19 10:08 | ED.CHESTPAIN ---
HPI - Chest Pain General Chief Complaint: Chest Pain Stated Complaint: CP Time Seen by Provider: 07/19/25 09:25 Source: patient Mode of arrival: ambulatory Limitations: no limitations History of Present Illness ED Provider: James Vieyra HPI narrative: 40-year-old female history of hypertension presents to the ED for sharp left-sided chest pain since last night. Patient denies any recent trauma, recent long travel, recent surgery. Patient denies any history of IV drug use. Patient denies any URI symptoms. Patient denies any breast swelling, nipple discharge or rash. Related Data Home Medications ?Medication ?Instructions ?Recorded ?Confirmed prazosin 1 mg capsule 1 mg PO BEDTIME 09/30/23 10/13/23 sertraline 100 mg tablet 100 mg PO DAILY 09/30/23 10/13/23 Previous Rx's ?Medication ?Instructions ?Recorded ibuprofen 800 mg tablet 800 mg PO Q8H PRN pain #14 tabs 08/13/22 lidocaine HCl 4 % topical cream 1 appl topical BID PRN pain #120 08/13/22 (Aspercreme (lidocaine HCl)) grams cyclobenzaprine 5 mg tablet 5 mg PO TID PRN muscle spasm 7 08/09/23 days #21 tabs naproxen 500 mg tablet 500 mg PO BID PRN pain 7 days #14 09/25/23 tabs tramadol 50 mg tablet 50 mg PO BEDTIME 7 days #7 tabs 09/30/23 cyclobenzaprine 10 mg tablet 10 mg PO TID PRN muscle spasm #15 05/04/25 tabs ibuprofen 800 mg tablet 800 mg PO Q8H PRN pain #30 tabs 05/04/25 Allergies Allergy/AdvReac Type Severity Reaction Status Date / Time latex Allergy Hives Verified 07/19/25 08:03 Review of Systems Review of Systems: Left-sided chest pain. Yes all other systems are reviewed and are negative PMFSH Past Medical History Medical History Fractured coccyx Depression Hypertension Surgical History Hx of foot surgery Hx of cholecystectomy Social History Social History Alcohol intake: current Alcohol intake frequency: a few times a week Patient Tobacco Use Status: Current someday Tobacco user Current occupation: [employer]-way[employer], 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 Physical Exam Vital Signs: Vital Signs: Last Vital Signs Temp 98.7 F 07/19/25 13:35 Pulse 76 07/19/25 13:35 Resp 14 07/19/25 13:35 BP 130/82 07/19/25 13:35 Pulse Ox 100 07/19/25 13:35 O2 Del Method Room Air 07/19/25 13:35 BMI result Body Mass Index 51.7 Const: General: cooperative, healthy appearing, comfortable, no acute distress, well developed, alert, awake and Physically active HEENT: Head: Yes normal to inspection, Yes No palpable skull fracture present, Yes normocephalic and Yes atraumatic Eyes: General: appearance normal, both eyes and all related structures Neck: Neck: Yes normal visual inspection, Yes full ROM, Yes no lymphadenopathy, Yes no meningeal signs, Yes trachea midline, Yes supple, No anterior neck swelling and No tender Chest: Chest palpation & inspection: normal inspection of the chest Chest/axillae images:  1. Positive for tenderness on palpation. Negative for crepitus, ecchymosis, rash, or deformity. Negative for any breast swelling, redness, nipple discharge. Resp: Effort & Inspection: normal respiratory effort and able to speak in complete sentences Auscultation: clear to auscultation bilaterally Cardio: Jugular venous distension: no JVD Heart sounds: S1 normal heart sound present and S2 normal heart sound present GI: Inspection: Yes normal to inspection Palpation (GI): Soft to palpation, not firm, nontender, no guarding and not rigid : General: Yes no CVA tenderness Back/Spine/Pelvis: Back: no CVA tenderness and No back tenderness Skin: General skin exam: no rashes or lesions noted, elasticity normal and turgor normal Neuro: General: gait normal, tone normal, moves all extremities, Normal light touch and pain sensation, no meningeal signs, no focal motor deficits, CN's II-XI intact bilaterally and normal sensation to monofilament Extrem: Other: Bilateral lower extremity negative for swelling, pitting edema, or calf tenderness.. General: Yes normal to inspection, Yes full ROM and Yes capillary refill normal Psych: Appearance: grossly normal, well kempt and not disheveled Medications Administered Discontinued Medications Generic Name Dose Route Start Last Admin Trade Name Leslie PRN Reason Stop Dose Admin Acetaminophen 975 mg 07/19/25 08:32 07/19/25 08:45 Acetaminophen 325 Mg Tablet PO 07/19/25 08:33 975 mg ONCE ONE Administration Ibuprofen 800 mg 07/19/25 08:32 07/19/25 08:45 Ibuprofen 800 Mg Tablet PO 07/19/25 08:33 800 mg ONCE ONE Administration Iohexol 100 ml 07/19/25 12:06 07/19/25 12:07 Iohexol 350 Mg/Ml 100 Ml Infus..Btl IV 07/19/25 12:07 65 ml ONCE ONE Administration Medical Decision Making Medical Decision Making [facility] Narrative: [age] year female presents to ED for left-sided chest pain since last night. Patient has left chest wall tenderness on palpation. Patient states also slight pleurisy. Patient is on oral control pill. We will add D-dimer. First troponin negative. Chest x-ray shows possible airway disease. Initial EKG nondiagnostic 1:15: Patient chest CTA came back negative PE, or pneumonia. Second troponin negative. Patient is safe for discharge. BNP negative. Patient informed to follow up with Cardiology. Not suspecting PE, aortic dissection, aneurysm, CHF exacerbation, hypoxia, myocarditis, pericarditis, or any life-threatening etiology. Patient explained worrisome signs and informed to return to the ED immediately. Patient made aware of cT scan readning of fluid of anterior septum mediastinum/thymus and told to follow up. Differential Diagnosis Differential Diagnoses: The differential diagnosis associated with the presentation includes (MN PE CHF) Admission/Observation Consideration of admission/observation: Escalation of care including admission/observation considered Lab Data [facility] Lab Attestation statement: I reviewed the patient's lab results. 07/19/25 08:29 07/19/25 08:29 Labs: Lab Results 07/19/25 07/19/25 07/19/25 Range/Units 08:29 09:54 11:27 WBC 6.3 (4.8-10.8) X10*3/uL RBC 4.72 (4.20-5.50) X10*6/uL Hgb 12.5 (12.0-16.0) g/dl Hct 39.3 (37.0-47.0) % MCV 83.3 (80.0-98.0) fL MCH 26.5 L (27.0-33.0) pg MCHC 31.8 (31.0-35.0) g/dl RDW 15.2 (11.0-16.0) % Plt Count 333 (160-400) X10*3/uL MPV 9.3 L (9.4-12.3) fL Immature Gran % (Auto) 0.2 (0.0-0.4) % Neut % (Auto) 52.4 (45-73) % Lymph % (Auto) 31.9 (20-40) % [place] % (Auto) 10.6 (2-11) % Eos % (Auto) 4.3 H (0-4) % Baso % (Auto) 0.6 (0-2) % Lymph # (Auto) 2.0 (1.2-4.9) X10*3/uL [place] # (Auto) 0.7 (0.1-1.2) X10*3/uL Eos # (Auto) 0.3 (0.0-0.4) X10*3/uL Baso # (Auto) 0.0 (0.0-0.2) X10*3/uL Abs Immat Gran (auto) 0.01 (0.00-0.03) X10*3/uL Absolute Neuts (auto) 3.3 (2.0-8.3) x10*3/uL Absolute Nucleated RBC 0.000 (0.0-0.012) X10*3/uL Nucleated RBC % (auto) 0.0 (0.0-0.2) /100WBC PT 12.1 (11.2-13.5) SEC INR 1.0 (0.9-1.1) APTT 26.1 L (26.7-34.1) SEC D-Dimer High Sensitivty 211 NG/ML Hold Blue Top SEE NOTE Sodium 139 (135-145) mmol/L Potassium 4.0 (3.3-5.1) mmol/L Chloride 107 (96-108) mmol/L Carbon Dioxide 25 (22-29) mmol/L Anion Gap 11 L (12-20) BUN 11 (9-16) mg/dL Creatinine 0.95 (0.5-1.4) mg/dL Estim Creat Clear Calc 121.5 Estimated GFR > 60 Random Glucose 80 (60-115) mg/dL Calcium 8.7 (8.4-10.2) mg/dL Total Bilirubin 0.4 (0.0-1.0) mg/dL Direct Bilirubin 0.1 (0.0-0.5) mg/dL AST 35 H (5-31) U/L ALT 36 H (0-31) U/L Alkaline Phosphatase 128 H (39-117) U/L Troponin I High Sens < 2.7 2.9 (<3.5-17.0) ng/L NT-Pro-B Natriuret Pep 32.1 (<300) pg/mL Total Protein 7.0 (6.5-8.0) g/dL Albumin 3.9 (3.5-5.0) g/dL Lipase 9 (8-78) U/L Beta HCG, Quant < 2 mIU/mL COVID-19 ([facility]) Negative (Negative) COVID-19 Clin Com See Note Influenza Type A (IV[facility]) Negative (Negative) Influenza Type B (IVORY) Negative (Negative) Influenza A & B Note See Note Independent Interpretation I performed an independent interpretation of an: EKG (Nondiagnostic) Independent Historian Clinical information obtained from an independent historian. History obtained from or confirmed by: Other (Patient is) Prescription Management I considered prescription management with: Pain Medication Discharge Plan Discharge Clinical Impression: Chest pain, Chest wall pain Patient Disposition: Home, Self-Care Instructions: Chest Pain (DC), Chest Wall Pain (ED) Additional Instructions: Recommend follow up with primary care provider and Cardiology. Your workup was reassuring. Return to the ED for any shortness of breath, chest pain, leg swelling, calf pain, coughing up blood, fever, chills, or any other concerning symptoms. [id number] ibuprofen can be taken for pain. Prescriptions: No Action ibuprofen 800 mg tablet 800 mg PO Q8H PRN (Reason: pain) Qty: 14 0RF lidocaine HCl [Aspercreme (lidocaine HCl)] 4 % cream 1 appl topical BID PRN (Reason: pain) Qty: 120 0RF cyclobenzaprine 10 mg tablet 10 mg PO TID PRN (Reason: muscle spasm) Qty: 15 0RF ibuprofen 800 mg tablet 800 mg PO Q8H PRN (Reason: pain) Qty: 30 0RF cyclobenzaprine 5 mg tablet 5 mg PO TID PRN (Reason: muscle spasm) 7 Days Qty: 21 0RF naproxen 500 mg tablet 500 mg PO BID PRN (Reason: pain) 7 Days Qty: 14 0RF prazosin 1 mg capsule 1 mg PO BEDTIME sertraline 100 mg tablet 100 mg PO DAILY tramadol 50 mg tablet 50 mg PO BEDTIME 7 Days Qty: 7 0RF Referrals: [facility] [place] [facility] [Provider Group, Cardiology] - 2 days Referral Note: Chest pain Clinical Impression: Chest wall pain; Chest pain Rosamaria Donato MD [Primary Care Provider, Internal Medicine] - 2 days Referral Note: Chest pain Clinical Impression: Chest wall pain; Chest pain Stand Alone Forms: Work/School Release Interventions: ED Discharge Assessment Last Done: 07/19/25 13:35 Discharge Date/Time: 07/19/25 13:49 Print Language: Arabic
[2025-07-19 10:29] LABS: COVID-19 Test Negative (Negative); IDNOW Serial# 08D9AD1C
[2025-07-19 10:43] LABS: IDNOW Serial# 58CA691E; Influenza B2 Negative (Negative)
[2025-07-19 10:48] LABS: INTERNATIONAL NORM RATIO 1.0 (0.9-1.1); Prothrombin Time 12.1 SEC (11.2-13.5)
[2025-07-19 10:50] LABS: D Dimer High Sensitivity 211 NG/ML; Partial Thromboplastin Time 26.1 SEC (26.7-34.1)
[2025-07-19 10:55] LABS: NT Pro B Type Natriuretic Pept 32.1 pg/mL (<300)
[2025-07-19 11:52] VITALS: BP 130/82; PULSE 76; RESP 14; O2SAT 100
[2025-07-19 11:52] LABS: Troponin-I High Sensitivity 2.9 ng/L (<3.5-17.0)
[2025-07-19] MEDS: iohexoL 350 MG/ML 100 ML INFUS..BTL IV (12:07)
[2025-07-19 13:35] VITALS: BP 130/82; PULSE 76; RESP 14; TEMP 37.1; O2SAT 100
== END 2025-07-19 13:49 | disposition home or self-care (01) ==
PROVIDERS: Physician Assistant; Emergency Provider Emergency Medicine Emergency Medical Services; PCP Family Medicine
DX: R07.89 Other chest pain (principal); Z79.899 Other long term (current) drug therapy; Z11.52 Encounter for screening for COVID-19
CPT/HCPCS: 36415; 71046; 71275; 80048; 80076; 83690; 83880; 84484; 84702; 85025; 85379; 85610; 85730; 87502; 87635; 93005; 99284; Q9967

== ENCOUNTER → 2025-07-19 07:58 | Outpatient (BNV) | payer OTHER, SELFPAY | PROVIDERS: Emergency Provider Emergency Medicine Emergency Medical Services; PCP Family Medicine; Visit Provider Internal Medicine Cardiovascular Disease | DX: R07.9 Chest pain, unspecified (principal) | CPT/HCPCS: 93010 ==

== ENCOUNTER → 2025-07-19 08:19 | Outpatient (BNV) | payer OTHER, SELFPAY | PROVIDERS: Emergency Provider Emergency Medicine Emergency Medical Services; PCP Family Medicine; Visit Provider Radiology Diagnostic Radiology | DX: R07.9 Chest pain, unspecified (principal); M47.814 Spondylosis without myelopathy or radiculopathy, thoracic region; J98.4 Other disorders of lung | CPT/HCPCS: 71046; 71275 ==

== ENCOUNTER 2025-08-15 09:01 | Emergency (ER) | payer OTHER, SELFPAY ==
[2025-08-15 09:06] VITALS: PULSE 96; RESP 16; TEMP 36.1; O2SAT 99; BMI 50.1
[2025-08-15 10:14] LABS: COVID-19 Test Negative (Negative); IDNOW Serial# 152EDE1D; IDNOW Serial# 16C4AD1C; Influenza B2 Negative (Negative)
[2025-08-15 10:22] LABS: IDNOW Serial# 6674DD1D; Strep A Nucleic Acid Negative (Negative)
--- NOTE | 2025-08-15 10:56 | ED_ITS ---
HPI - General Adult General Chief complaint: Upper Respiratory Symptoms Stated complaint: N/V/D Time Seen by Provider: 08/15/25 10:36 Source: patient Mode of arrival: ambulatory Limitations: no limitations History of Present Illness ED Provider: James Vieyra HPI narrative: 40 yold Female with pmh of Depression, HYpertension presents to the ED for sore throat coughing, hot flashes, and cough. patient denies any chest pain or shortness of breath. Related Data Home Medications ?Medication ?Instructions ?Recorded ?Confirmed prazosin 1 mg capsule 1 mg PO BEDTIME 09/30/2310/05 sertraline 100 mg tablet 100 mg PO DAILY 09/30/2310/05 Previous Rx's ?Medication ?Instructions ?Recorded ibuprofen 800 mg tablet 800 mg PO Q8H PRN pain #14 t abs 08/13/22 lidocaine HCl 4 % topical cream 1 appl topical BID PRN pain #120 08/13/22 (Aspercreme (lidocaine HCl)) grams cyclobenzaprine 5 mg tablet 5 mg PO TID PRN muscle spa sm 7 08/09/23 days #21 tabs naproxen 500 mg tablet 500 mg PO BID PRN pain 7 day s #14 09/25/23 tabs tramadol 50 mg tablet 50 mg PO BEDTIME 7 days #7 t abs 09/30/23 cyclobenzaprine 10 mg tablet 10 mg PO TID PRN muscle s pasm #15 05/04/25 tabs ibuprofen 800 mg tablet 800 mg PO Q8H PRN pain #30 t abs 05/04/25 amoxicillin 875 mg-potassium 1 tab PO Q12H 10 days #20 tabs 08/15/25 clavulanate 125 mg tablet benzonatate 200 mg capsule 200 mg PO TID PRN cough 5 d ays #15 08/15/25 caps Allergies Allergy/AdvReac Type Severity Reaction Status Date / Time latex Allergy Hives Verified 08/15/25 09:08 Review of Systems Review of Systems: sore throat, hot flashes and cough Yes all other systems are reviewed and are negative PMFSH Past Medical History Medical History Fractured coccyx Depression Hypertension Surgical History Hx of foot surgery Hx of cholecystectomy Social History Social History Alcohol intake: current Alcohol intake frequency: a few times a week Patient Tobacco Use Status: Current someday Tobacco user Advance Directives: No Advance Directives Information Provided: No 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, 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 Physical Exam ED Vital Signs: Vital Signs - 24 hr 08/15/25 09:06 Temperature 97 F Pulse Rate 96 Respiratory Rate 16 Pulse Oximetry 99 Oxygen Delivery Method Room Air BMI result Body Mass Index 50.1 Const Orientation/consciousness: patient oriented x3 HENMS Head: Yes normal to inspection, Yes No palpable skull fracture present, Yes normocephalic and Yes atraumatic Ears: hearing grossly normal bilaterally, external ears normal, TM's normal bilaterally, TM normal on the right, TM normal on the left, EAC's normal, mastoids normal and no periauricular adenopathy Throat: Yes posterior oropharynx normal, Yes tonsils normal and Yes uvula midline Eyes General: appearance normal, both eyes and all related structures Neck Neck: Yes normal visual inspection, Yes full ROM, Yes no lymphadenopathy, Yes no meningeal signs, Yes trachea midline, Yes supple, No anterior neck swelling and No tender Chest Chest palpation & inspection: normal inspection of the chest and normal palpation of entire chest wall Resp Effort & Inspection: normal respiratory effort and able to speak in complete sentences Auscultation: clear to auscultation bilaterally Cardio Jugular venous distension: no JVD Heart sounds: S1 normal heart sound present and S2 normal heart sound present GI Inspection: Yes normal to inspection Palpation (GI): Soft to palpation, not firm, nontender, no guarding and not rigid General: Yes no CVA tenderness Back/Spine/Pelvis Back: no CVA tenderness and No back tenderness Skin General skin exam: no rashes or lesions noted, elasticity normal and turgor normal Neuro General: patient oriented x3, gait normal, tone normal, moves all extremities, Normal light touch and pain sensation, no meningeal signs, no focal motor d eficits, CN's II-XI intact bilaterally and normal sensation to monofilament Extrem General: Yes normal to inspection, Yes full ROM and Yes capillary refill normal Psych Appearance: grossly normal, well kempt and not disheveled Medical Decision Making Medical Decision Making MDM Narrative: [age] year female presents to the URI symptoms. Patient's children also has similar symptoms. Patient is well-appearing COVID influenza strep negative. Patient explained worrisome signs formed to the ED immediately. Patient has 2 children tested positive for strep. Patient will be discharged with coughing medication antibiotics. Not suspecting hypoxia, NH, PE, peritonsilarr abscess, autumn angina, retropharyngeal abscess, or any other life threatening etiology. Differential Diagnosis Differential Diagnoses: The differential diagnosis associated with the presentation includes (Strep COVID influenza) Admission/Observation Consideration of admission/observation: Escalation of care including admission/observation considered Lab Data MDM Lab Attestation statement: I reviewed the patient's lab results. Labs: Lab Results 08/15/25 Range/Units 09:37 COVID-19 ([facility]) Negative (Negative) COVID-19 Clin Com See Note Influenza Type A ([facility]) Negative (Negative) Influenza Type B (IV[facility]) Negative (Negative) Influenza A & B Note See Note S. pyogenes GrpA [facility] Negative (Negative) Independent Historian Clinical information obtained from an independent historian. History obtained from or confirmed by: Other (patient) Prescription Management I considered prescription management with: Pain Medication and Antibiotic Discharge Plan Discharge Clinical Impression: Pharyngitis, Upper respiratory infection Patient Disposition: Home, Self-Care Instructions: Pharyngitis (ED), Upper Respiratory Infection (ED) Additional Instructions: Recommend follow up with primary care provider. Return to the ED immediately for any chest pain, shortness of breath, weakness, dizziness, rash, or any other concerning symptoms. Prescriptions: New amoxicillin-pot clavulanate 875-125 mg tablet 1 tab PO Q12H 10 Days Qty: 20 0RF benzonatate 200 mg capsule 200 mg PO TID PRN (Reason: cough) 5 Days Qty: 15 0RF No Action ibuprofen 800 mg tablet 800 mg PO Q8H PRN (Reason: pain) Qty: 14 0RF lidocaine HCl [Aspercreme (lidocaine HCl)] 4 % cream 1 appl topical BID PRN (Reason: pain) Qty: 120 0RF cyclobenzaprine 10 mg tablet 10 mg PO TID PRN (Reason: muscle spasm) Qty: 15 0RF ibuprofen 800 mg tablet 800 mg PO Q8H PRN (Reason: pain) Qty: 30 0RF cyclobenzaprine 5 mg tablet 5 mg PO TID PRN (Reason: muscle spasm) 7 Days Qty: 21 0RF naproxen 500 mg tablet 500 mg PO BID PRN (Reason: pain) 7 Days Qty: 14 0RF prazosin 1 mg capsule 1 mg PO BEDTIME sertraline 100 mg tablet 100 mg PO DAILY tramadol 50 mg tablet 50 mg PO BEDTIME 7 Days Qty: 7 0RF Referrals: Rosamaria Donato MD [Primary Care Provider, Internal Medicine] - 2 days Referral Note: Pharyngitis URI Clinical Impression: Upper respiratory infection; Pharyngitis Stand Alone Forms: Work/School Release Interventions: ED Discharge Assessment Last Done: 08/15/25 11:39 Discharge Date/Time: 08/15/25 11:41 Print Language: Scottish
[2025-08-15 11:39] VITALS: BP 00/00; PULSE 96; RESP 16; TEMP 36.1; O2SAT 99
== END 2025-08-15 11:41 | disposition home or self-care (01) ==
PROVIDERS: Emergency Provider Emergency Medicine; PCP Family Medicine
DX: J02.9 Acute pharyngitis, unspecified (principal); J06.9 Acute upper respiratory infection, unspecified; R11.2 Nausea with vomiting, unspecified; R05.9 Cough, unspecified; R19.7 Diarrhea, unspecified; F32.A Depression, unspecified; I10 Essential (primary) hypertension; F17.210 Nicotine dependence, cigarettes, uncomplicated
CPT/HCPCS: 87502; 87635; 87651; 99282

== ENCOUNTER 2025-09-06 11:41 | Inpatient (IN) | payer OTHER, SELFPAY ==
--- OUTSIDE RECORDS SUMMARY | 2025-09-01 23:59 | XMS_ITS | Continuity of Care Document ---
Author Organization [facility] Address [address] [place] [address]- Care Team Providers Care Shop Cooper Name Role Phone Kinga PRIETO, Rosamaria Bunch Primary Care Physician [phone] [place] [facility] [place] 08/02/25 - 09/01/[address] [address]- Encounter Type: Triage Allergies, Adverse Reactions, Alerts Substance Criticality Severity Reaction Reaction Severity Status Latex swelling Active Immunizations Given and Recorded Vaccine Date Status Refusal Reason Measles/Mumps/Rubella Virus Vaccine 05/15/21 Given tetanus/diphtheria/pertussis, acel(Tdap) 03/09/21 Recorded tetanus/diphtheria/pertussis, acel(Tdap) 1 08/24/10 Given influenza virus vaccine, inactivated 08/24/13 Give n influenza virus vaccine, inactivated 2 08/24/10 Gi stephanie FluLaval (oldterm) 3 05/29/12 Given Fluzone (oldterm) 4 08/20/11 Given diphtheria/tetanus/pertussis, acel(DTaP) 5 01/23/09 Given 1Admin Note: vis given 2Admin Note: vis giveen 3Admin Note: vis 03/13/12 4Admin Note: vis 04/22/09 5Admin Note: VIS GIVEN 01/26/2007 Medications Ambien 5 mg oral tablet 1 tablet = 5 mg, By Mouth, Daily at bedtime, PRN as needed for insomnia, Use on non-work days to sleep overnight, # 10 tablet, 5 Refills, Maintenance, 06/28/25 10:36:00 AM EDT, Tablet, [facility] #[id number], Partial fill upon patient request if the prescription is for a schedule II opioid drug. Dx: Shift work sleep disorder. 1 month supply., 171, cm, 06/28/25 10:08:00 EDT, Height, 154.4, kg, 06/27/25 10:31:00 EDT, Dry Weight Start Date: 06/28/25 Status: Ordered Medication Dispense Status: Completed Quantity: 10.0 Unit: tablet Total Allowed Fills: 6 Fills Dispensed: 0 Mounjaro 7.5 mg/0.5 mL subcutaneous solution = 7.5 mg, Subcutaneous Injection, Every week, rotate injection sites, # 2 mL, 0 Refills, Maintenance, 08/22/25 2:05:00 PM EST, Solution, [email or web address] #[id number], Partial fill upon patient requestif the prescription is for a schedule II opioid drug., 170, cm, 08/21/25 12:39:00 EST, Height, 154.4, kg, 06/27/25 10:31:00 EDT, Dry Weight Start Date: 08/22/25 Status: Ordered Medication Dispense Status: Completed Quantity: 2.0 Unit: mL Total Allowed Fills: 1 Fills Dispensed: 0 norethindrone 5 mg oral tablet 5 mg, 1, tablet, By Mouth, Daily, # 90 tablet, Refills 1, Tot. Refills 1, Maintenance, 06/27/25 10:52:00 AM EDT, Route to Pharmacy Electronically, [email or web address] #[id number], Partial fill upon patient request if the prescription is for a schedule II opioid drug., 171, cm, 06/27/25 10:31:00 EDT, Height, 154.4, kg, 06/27/25 10:31:00 EDT, Dry Weight Start Date: 06/27/25 Status: Ordered Medication Dispense Status: Completed Quantity: 90.0 Unit: tablet Total Allowed Fills: 2 Fills Dispensed: 0 pantoprazole 20 mg oral delayed release tablet 1 tablet = 20 mg, By Mouth, Daily, # 90 tablet, 0 Refills, Maintenance, 05/31/25 10:53:00 AM EDT, CRTablet, 171, cm, 05/31/25 10:19:00 EDT, Height, 154.1, kg, 07/20/23 16:56:00 EST, Dry Weight Start Date: 05/31/25 Status: Ordered Medication Dispense Status: Completed Quantity: 90.0 Unit: tablet Total Allowed Fills: 1 Fills Dispensed: 0 right cock-up splint right cock-up splint, See Instructions, # 1 each, Refills 0, Tot. Refills 0, Maintenance, use everynight as directed, Duration 99, Dx G56.01, 10/22/24 2:31:00 PM EST, Supply Start Date: 10/22/24 Status: Ordered Medication Dispense Status: Completed Quantity: 1.0 Unit: each Total Allowed Fills: 1 Fills Dispensed: 0 Indications: Carpal tunnel syndrome, right upper limb; Problem List Condition Confirmation Course Effective Dates Status Health St atus Informant Anxiety disorder Confirmed Active Back pain Confirmed 01/23/09 Active Sacroiliac joint dysfunction of both sides Confirmed Active h/o JAQUAN 1; normal paps 2010, 2011, 2015, 2020 1 Confirmed Active Shift work sleep disorder Confirmed Active Dysmenorrhea Confirmed Active HONG (headache) Confirmed Active Hypertension Confirmed Active Prediabetes Confirmed Active Lumbar facet joint pain Confirmed Active Lumbar radiculitis Confirmed Active Morbid obesity Confirmed Active Severe obesity Confirmed Active Vitamin D deficiency Confirmed Active 1normal PAP 06/23 Social History Social History Type Response Tobacco Use: 4 or less cigar ettes(less than 1/4 pack)/day in last 30 days. Other: one pack every 2 weeks. Sexual Orientation Self described orien tation: ; Straight or heterosexual Sex Sex Representation Female (finding) Patient Care team information Care Team Personnel Name: Rosamaria Donato MD Position: S Physician - Primary Care Member Role: PCP Address: [address] [place] [address] Telecom: Care Team Related Persons Name: JAM BROOKS Name: STEPHANIE SAUCEDO Name: KALEN SAUCEDO Name: SHEREE SAUCEDO Insurance Providers Guarantor name: DAPHNE SAUCEDO [employer] Plan Information #: 1 Payer: [employer] [place] Payer Identifier: NA Member Number: [id number] Group Number: [id number] Subscriber Identifier: PARTH Relationship to Subscriber: self Coverage Type: Medicaid (Managed Care) Coverage Verification Date: NA Telecom: PARTH Address: NA
[2025-09-06] VITALS (8 sets, daily range): BP systolic 134–198; BP diastolic 77–93; PULSE 89–117; RESP 12–22; TEMP 36.3–36.8; O2SAT 98–100; BMI 48.2; BMI 48.4
--- NOTE | ~2025-09-06 | XR_ITS ---
EXAMINATION: XR CHEST 2 VIEWS HISTORY: cp/sob COMPARISON: Comparison is made with the prior examination dated 07/19/2025. FINDINGS: AP and lateral views of the chest are submitted. The lungs are expanded and clear. There is no pleural effusion, pneumothorax, or pulmonary vascular congestion. The heart is normal in size. There is mild degenerative disc disease of the spine. XR/XR chest 2V IMPRESSION: No acute cardiopulmonary abnormality. Electronically signed by: Bhavik Villagomez MD 09/06/2025 12:39 PM [place]
--- NOTE | ~2025-09-06 | CT_ITS ---
CLINICAL HISTORY: R paresthesias CT head without contrast Comparison: None provided Findings: No intra-axial mass, midline shift, hydrocephalus, or acute hemorrhage. No significant atrophy-like change or white matter disease. There is no sinus or mastoid fluid. The orbits are within normal limits. No skull fracture. IMPRESSION: 1. No acute intracranial findings. This document has been electronically signed by: Grecia Parker MD on 09/07/2025 16:40:45
--- NOTE | ~2025-09-06 | CT_ITS ---
CLINICAL HISTORY: SOB, CP, concern for PE CT angiography chest with contrast. 3D Postprocessing. Comparison: CT/DC/SR - CT CHEST ANGIOGRAPHY WITH IV CONTRAST - 07/19/25 11:59 EST Findings: The heart size is normal. RV/LV ratio is normal. The thoracic aorta is normal caliber. Evaluation for pulmonary artery embolism is limited by density of contrast within the pulmonary arterial tree. There is no central pulmonary embolus. The visualized thyroid and mediastinum are unremarkable. No consolidation or pleural effusion. Status post cholecystectomy. The bones are intact. IMPRESSION: Evaluation for pulmonary artery embolism is limited by density of contrast within the pulmonary arterial tree. There is no central pulmonary embolus. This document has been electronically signed by: Grecia Parker MD on 09/06/2025 18:03:20
--- NOTE | 2025-09-06 11:42 | ECG_ITS ---
Test Reason : cp Blood Pressure : */* mmHG Vent. Rate : 125 BPM Atrial Rate : 125 BPM P-R Int : 120 ms QRS Dur : 116 ms QT Int : 348 ms P-R-T Axes : * 68 245 degrees QTcB Int : 502 ms Sinus tachycardia Left ventricular hypertrophy with QRS widening and repolarization abnormality ( Sokolow-Cyr ) Possible Inferior infarct , age undetermined Anterolateral infarct , age undetermined Abnormal ECG When compared with ECG of 19-Jul-2025 08:04, Vent. rate has increased Referred By: Jennifer Nickerson Electronically Signed By: PATEL CADET MD
--- NOTE | 2025-09-06 11:55 | ED_ITS ---
HPI - Chest Pain General Chief Complaint: Chest Pain Stated Complaint: Chest Pain, Difficulty Breathing Time Seen by Provider: 09/06/25 16:18 Source: patient Mode of arrival: ambulatory Limitations: no limitations History of Present Illness ED Provider: Thu Fuller PA-C HPI narrative: Patient is a 40 year old female with a history of HTN, previous tobacco use, and depression presenting to the emergency department today with chest pain and intermittent shortness of breath. Patient states that over the last day she has had chest pain with intermittent shortness of breath. Patient states that when she was seen here she was referred to Cardiology but she missed the appointment and needs to get another one. Patient denies any recent travel or control use. Patient denies any other complaints at this time. Related Data Home Medications ?Medication ?Instructions ?Recorded ?Confirmed prazosin 1 mg capsule 1 mg PO BEDTIME 09/30/2310/05 sertraline 100 mg tablet 100 mg PO DAILY 09/30/2310/05 Previous Rx's ?Medication ?Instructions ?Recorded ibuprofen 800 mg tablet 800 mg PO Q8H PRN pain #14 t abs 08/13/22 lidocaine HCl 4 % topical cream 1 appl topical BID PRN pain #120 08/13/22 (Aspercreme (lidocaine HCl)) grams cyclobenzaprine 5 mg tablet 5 mg PO TID PRN muscle spa sm 7 08/09/23 days #21 tabs naproxen 500 mg tablet 500 mg PO BID PRN pain 7 day s #14 09/25/23 tabs tramadol 50 mg tablet 50 mg PO BEDTIME 7 days #7 t abs 09/30/23 cyclobenzaprine 10 mg tablet 10 mg PO TID PRN muscle s pasm #15 05/04/25 tabs ibuprofen 800 mg tablet 800 mg PO Q8H PRN pain #30 t abs 05/04/25 amoxicillin 875 mg-potassium 1 tab PO Q12H 10 days #20 tabs 08/15/25 clavulanate 125 mg tablet benzonatate 200 mg capsule 200 mg PO TID PRN cough 5 d ays #15 08/15/25 caps Allergies Allergy/AdvReac Type Severity Reaction Status Date / Time latex Allergy Hives Verified 09/06/25 11:57 Review of Systems 2 Constitutional: Constitutional: Reports as per HPI Eyes: Eyes: Reports as per HPI ENT: Reports as per HPI Cardiovascular: Cardiovascular: Reports as per HPI Respiratory: Respiratory: Reports as per HPI Gastrointestinal: Gastrointestinal: Reports as per HPI Genitourinary: Genitourinary: Reports as per HPI Musculoskeletal: Musculoskeletal: Reports as per HPI Integumentary/Breasts: Skin/Breast: Reports as per HPI Neurologic: Reports as per HPI Psychiatric: Psychiatric: Reports as per HPI Endocrine: Endocrine: Reports as per HPI Hematologic/Lymphatic: Hematologic/Lymphatic: Reports as per HPI Allergic/Immunologic: Allergic/Immunologic: Reports as per HPI [facility] Past Medical History Attestation statement: The following information was validated with the patient. Source: old records reviewed and nursing notes reviewed Medical History Fractured coccyx Depression Hypertension Surgical History Hx of foot surgery Hx of cholecystectomy Social History Social History Household Members: Children Housing: Apartment Do you presently have visiting nurse or other home services: No Alcohol intake: current Alcohol intake frequency: a few times a week Patient Tobacco Use Status: Former Tobacco user Current occupation: [employer], 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 Physical Exam 2 Vital Signs: Vital Signs: Last Vital Signs Temp 98.3 F 09/06/25 19:40 Pulse 104 H 09/06/25 20:04 Resp 13 09/06/25 19:40 BP 144/85 H 09/06/25 20:04 Pulse Ox 99 09/06/25 19:40 O2 Del Method Room Air 09/06/25 19:40 BMI result Body Mass Index 48.2 Const: General: cooperative, no acute distress, alert and awake Nutritional Appearance: well nourished Orientation/consciousness: patient oriented x3 HEENT: Head: Yes normal to inspection and Yes atraumatic Ears: hearing grossly normal bilaterally and external ears normal General nose exam: Normal external nose present, no nasal discharge noted and no epistaxis Face and sinus: Yes normal facial exam, No abrasion and No laceration Mouth: Normal oral and palatal mucosa present, no drooling and no muffled voice Eyes: General: appearance normal, both eyes and all related structures P eriorbital: periorbital findings normal Eyelids: Yes eyelids normal C onjunctivae: conjunctivae normal Pupils: Equal, round and reactive pupils present EOM: EOMs intact bilaterally Neck: Neck: Yes normal visual inspection and Yes full ROM Resp: Effort & Inspection: normal respiratory effort and able to speak in complete sentences Cardio: Rate: tachycardic Rhythm: regular rhythm Neuro: General: patient oriented x3, moves all extremities and CN's II-XI intact bilaterally Cranial nerves: Yes Equal, round and reactive pupils present Cognition (Neuro): normal cognition Extrem: General: Yes normal to inspection, Yes full ROM and Yes capillary refill normal Psych: Appearance: grossly normal Mental Status: mental status grossly normal Affect: normal affect Attitude: cooperative Thought process: N ormal thought process present Thought content: Normal thought content present Insight: Good insight present (Psych) Course Course Course Narrative: This is a Rapid Medical Exam performed in triage by Jennifer Nickerson PA-C. Full HPI, ROS and PE to be performed by primary ED provider. 40 yo F w/PMHx HTN, depression, presenting to the ED c/o left sided CP since last night - worsening today. +SOB PE: anxious / tearful, in wheelchair, talking in complete sentences. HTNsive/tachycardic, shaky Plan: EKG, labs, SARs Medications Administered Generic Name Dose Route Start Last Admin Trade Name Freq PRN Reason Stop Dose Admin Aspirin 81 mg 09/06/25 19:50 09/06/25 20:04 Aspirin Enteric Coated 81 Mg Tablet. PO 81 mg DAILY [place] Administration Nitroglycerin 1 inch 09/06/25 19:50 09/06/25 20:04 Nitroglycerin 2 % Oint 1 Gm Packet TRANSDERMA 1 inch BID@0900,1500 [place] Administration Discontinued Medications Generic Name Dose Route Start Last Admin Trade Name Freq PRN Reason Stop Dose Admin Aspirin 325 mg 09/06/25 18:10 09/06/25 18:31 Aspirin Enteric Coated 325 Mg Tablet. PO 09/06/25 18:11 325 mg ONCE ONE Administration Magnesium Sulfate 2 gm in 50 mls @ 150 mls/hr 09/06/25 16:17 09/06/25 17:59 Magnesium Sulfate/H2o IV 09/06/25 16:36 Infused ONCE ONE Infusion Iohexol 100 ml 09/06/25 17:44 09/06/25 17:45 Iohexol 350 Mg/Ml 100 Ml Infus..Btl IV 09/06/25 17:45 65 ml ONCE ONE Administration Morphine Sulfate 4 mg 09/06/25 19:18 09/06/25 19:34 Morphine Sulfate 4 Mg/Ml Cartridge IVPUSH 09/06/25 19:19 4 mg ONCE ONE Administration Protocol Nitroglycerin 0.4 mg 09/06/25 18:10 09/06/25 18:32 Nitroglycerin 0.4 Mg Tab.Subl SUBLINGUAL 09/06/25 18:11 0.4 mg ONCE ONE Administration Ondansetron HCl 4 mg 09/06/25 19:18 09/06/25 19:34 Ondansetron Hcl 4 Mg/2 Ml Vial IVPUSH 09/06/25 19:19 4 mg ONCE ONE Administration Medical Decision Making Medical Decision Making [facility] Narrative: Patient is a 40 year old female with a history of HTN, previous tobacco use, and depression presenting to the emergency department today with chest pain and intermittent shortness of breath. Patient's physical exam was as noted in the physical exam portion of this note. Patient's blood work showed a magnesium of 1.3, elevated AST 67, elevated ALT 46, elevated alk phos 129. First trop 5.6. Repeat 10.7. Patient's EKG showed tachycardia but no obvious ischemia or infarct. Patient's chest x-ray and CT PE showed no acute process. Patient received sublingual nitro which helped her chest pain some. Patient's heart score is 4. I consulted with my attending physician, Dr. Ceja, who recommended admission. I spoke with the hospitalist team who agreed to admission. I explained my physical exam findings as well as all test results to the patient. I answered all questions asked by the patient. Patient verbalized agreement and understanding with this treatment plan and discharge. Differential Diagnosis Differential Diagnoses: The differential diagnosis associated with the presentation includes Chest pain NSTEMI STEMI Costochondritis ACS Admission/Observation Consideration of admission/observation: Escalation of care including admission/observation considered Patient admitted as noted in the MDM Rationale portion of this note. Consult Healthcare Provider Management of the patient was discussed with: Hospitalist (agreed to admission as noted in the MDM Rationale portion of this note. ) Lab Data [facility] Lab Attestation statement: I reviewed the patient's lab results. My interpretation of these results are in the MDM Rationale portion of this note. 09/06/25 12:27 09/06/25 12:27 Labs: Lab Results 09/06/25 Range/Units 12:27 WBC 8.9 (4.8-10.8) X10*3/uL RBC 4.89 (4.20-5.50) X10*6/uL Hgb 13.3 (12.0-16.0) g/dl Hct 39.5 (37.0-47.0) % MCV 80.8 (80.0-98.0) fL MCH 27.2 (27.0-33.0) pg MCHC 33.7 (31.0-35.0) g/dl RDW 16.3 H (11.0-16.0) % Plt Count 330 (160-400) X10*3/uL MPV 8.9 L (9.4-12.3) fL Immature Gran % (Auto) 0.4 (0.0-0.4) % Neut % (Auto) 66.6 (45-73) % Lymph % (Auto) 25.8 (20-40) % Carlton % (Auto) 6.4 (2-11) % Eos % (Auto) 0.1 (0-4) % Baso % (Auto) 0.7 (0-2) % Lymph # (Auto) 2.3 (1.2-4.9) X10*3/uL Carlton # (Auto) 0.6 (0.1-1.2) X10*3/uL Eos # (Auto) 0.0 (0.0-0.4) X10*3/uL Baso # (Auto) 0.1 (0.0-0.2) X10*3/uL Abs Immat Gran (auto) 0.04 H (0.00-0.03) X10*3/uL Absolute Neuts (auto) 5.9 (2.0-8.3) x10*3/uL Absolute Nucleated RBC 0.000 (0.0-0.012) X10*3/uL Nucleated RBC % (auto) 0.0 (0.0-0.2) /100WBC Sodium 139 (135-145) mmol/L Potassium 3.4 (3.3-5.1) mmol/L Chloride 106 (96-108) mmol/L Carbon Dioxide 20 L (22-29) mmol/L Anion Gap 16 (12-20) BUN 15 (9-16) mg/dL Creatinine 1.03 (0.5-1.4) mg/dL Estim Creat Clear Calc 107.4 Estimated GFR 60 Random Glucose 90 (60-115) mg/dL Calcium 9.5 D (8.4-10.2) mg/dL Magnesium 1.3 L* (1.6-2.6) mg/dL Total Bilirubin 1.0 (0.0-1.0) mg/dL Direct Bilirubin 0.3 (0.0-0.5) mg/dL AST 67 H (5-31) U/L ALT 46 H (0-31) U/L Alkaline Phosphatase 129 H (39-117) U/L Troponin I High Sens 5.6 D (<3.5-17.0) ng/L NT-Pro-B Natriuret Pep 27.9 (<300) pg/mL Total Protein 7.6 (6.5-8.0) g/dL Albumin 4.2 (3.5-5.0) g/dL Lipase 10 (8-78) U/L Beta HCG, Quant < 2 mIU/mL Influenza Type A (PCR) NEGATIVE (Negative) Influenza Type B (PCR) NEGATIVE (Negative) RSV RNA Qual (PCR) NEGATIVE (Negative) SARS-CoV-2 RNA (RT-PCR) NEGATIVE (Negative) Independent Interpretation I performed an independent interpretation of an: EKG, Plain X-Ray and CT Scan Interpretation: My interpretation is in agreement with the radiologist's impression of these imaging studies as written below. CLINICAL HISTORY: SOB, CP, concern for PE CT angiography chest with contrast. 3D Postprocessing. Comparison: CT/NM/SR - CT CHEST ANGIOGRAPHY WITH IV CONTRAST - 07/19/25 11:59 EST Findings: The heart size is normal. RV/LV ratio is normal. The thoracic aorta is normal caliber. Evaluation for pulmonary artery embolism is limited by density of contrast within the pulmonary arterial tree. There is no central pulmonary embolus. The visualized thyroid and mediastinum are unremarkable. No consolidation or pleural effusion. Status post cholecystectomy. The bones are intact. IMPRESSION: Evaluation for pulmonary artery embolism is limited by density of contrast within the pulmonary arterial tree. There is no central pulmonary embolus. This document has been electronically signed by: Grecia Parker MD on 09/06/2025 18:03:20 Dictated By: Grecia Parker MD Signed By: Electronically signed by Grecia Parker MD 09/06/25 1804 EXAMINATION: XR CHEST 2 VIEWS HISTORY: cp/sob COMPARISON: Comparison is made with the prior examination dated 07/19/2025. FINDINGS: AP and lateral views of the chest are submitted. The lungs are expanded and clear. There is no pleural effusion, pneumothorax, or pulmonary vascular congestion. The heart is normal in size. There is mild degenerative disc disease of the spine. XR/XR chest 2V IMPRESSION: No acute cardiopulmonary abnormality. Electronically signed by: Bhavik Villagomez MD 09/06/2025 12:39 PM EST Dictated By: Bhavik Villagomez MD Signed By: Electronically signed by Bhavik Villagomez MD 09/06/25 1239 I independently interpreted this EKG and am in agreement with the below findings: Vent. Rate: 125 BPM Atrial Rate: 125 BPM P-R Int: 120 ms QRS Dur: 116 ms QT Int: 348 ms P-R-T Axes: * 68 245 degrees QTcB Int: 502 ms Sinus tachycardia 09/06/25 1516 I independently interpreted this EKG and am in agreement with the below findings: Vent. Rate: 102 BPM Atrial Rate: 102 BPM P-R Int: 116 ms QRS Dur: 80 ms QT Int: 364 ms P-R-T Axes: 54 55 29 degrees QTcB Int: 474 ms Sinus tachycardia DD/ 1835 Radiology Impression Discussion of test interpretation with radiology: I have reviewed the radiologist's reading. Chronic Conditions Patient?s care impacted by: Hypertension Scores Heart Score History: -2- highly suspicious ECG: -1- non specific repolarization disturbance Age: -0- < or = 45 Risk factory: -1- 1 or 2 risk factors Troponin: -0- < or = normal limit Score: 4 Risk: 16.6% Discharge Plan Discharge Clinical Impression: Hypertension, Chest pain Patient Disposition: Admitted As Inpatient Interventions: Admission Worksheet (ED) Last Done: 09/06/25 19:44 Discharge Date/Time: 09/06/25 20:42
[2025-09-06 12:32] LABS: MANUAL DIFF FLAG NO
[2025-09-06 12:33] LABS: Hematocrit 39.5 % (37.0-47.0); Hemoglobin 13.3 g/dl (12.0-16.0); Imm Gran Abs Auto 0.04 X10*3/uL (0.00-0.03); Imm Gran Pct Auto 0.4 % (0.0-0.4); Lymphocytes Absolute Auto 2.3 X10*3/uL (1.2-4.9); Mean Corpuscular HGB Conc 33.7 g/dl (31.0-35.0); Mean Corpuscular Hemoglobin 27.2 pg (27.0-33.0); Mean Corpuscular Volume 80.8 fL (80.0-98.0); NRBC Abs Auto 0.000 X10*3/uL (0.0-0.012); NRBC Pct Auto 0.0 /100WBC (0.0-0.2); Platelet Count 330 X10*3/uL (160-400); Red Blood Count 4.89 X10*6/uL (4.20-5.50); White Blood Count 8.9 X10*3/uL (4.8-10.8)
[2025-09-06 12:57] LABS: Troponin-I High Sensitivity 5.6 ng/L (<3.5-17.0)
[2025-09-06 13:00] LABS: Alanine Aminotransferase 46 U/L (0-31); Albumin Level 4.2 g/dL (3.5-5.0); Alkaline Phosphatase 129 U/L (39-117); Anion Gap 16 (12-20); Aspartate Amino Transferase 67 U/L (5-31); Blood Urea Nitrogen 15 mg/dL (9-16); Calcium 9.5 mg/dL (8.4-10.2); Carbon Dioxide 20 mmol/L (22-29); Chloride 106 mmol/L (96-108); Creatinine Clr Calc Pharmacy 107.4; Estimated Glomerular Filt Rate 60; Magnesium 1.3 mg/dL (1.6-2.6); Potassium 3.4 mmol/L (3.3-5.1); Sodium 139 mmol/L (135-145); Total Protein 7.6 g/dL (6.5-8.0)
[2025-09-06 13:09] LABS: Resp Syncy Virus RNA Qual PCR NEGATIVE (Negative); SARS COV2 PCR INHOUSE NEGATIVE (Negative)
[2025-09-06 16:42] LABS: Lipase 10 U/L (8-78)
[2025-09-06 16:49] LABS: NT Pro B Type Natriuretic Pept 27.9 pg/mL (<300)
[2025-09-06] MEDS: Magnesium Sulfate/H2O 2 GM/50 ML PIGGYBACK IV (17:23)
[2025-09-06] MEDS: iohexoL 350 MG/ML 100 ML INFUS..BTL IV (17:45)
--- NOTE | 2025-09-06 18:13 | ECG_ITS ---
Test Reason : REPEAT EKG CP Blood Pressure : */* mmHG Vent. Rate : 102 BPM Atrial Rate : 102 BPM P-R Int : 116 ms QRS Dur : 80 ms QT Int : 364 ms P-R-T Axes : 54 55 29 degrees QTcB Int : 474 ms Sinus tachycardia Minimal voltage criteria for LVH, may be normal variant ( Sokolow-Cyr ) Borderline ECG When compared with ECG of 06-Sep-2025 11:43, No significant changes seen Referred By: Thu Fuller Electronically Signed By: PATEL CADET MD
[2025-09-06] MEDS: Aspirin Enteric Coated 325 MG TABLET.DR PO (18:31)
--- NOTE | 2025-09-06 19:51 | HO.NURTONUR ---
40 F Full code Cardiac diet AxOx4 Admitting diagnosis: hypertension, cp IND #20g LAC
--- NOTE | 2025-09-06 19:52 | PM.IMHP ---
History of Present Illness Date of Service: 09/06/25 Attending physician on admission: Cachorro Laura Chief Complaint: Chest pain Alverto Lewis 40 years old woman with past medical history significant for essential hypertension not currently on hypertensive meds, GERD and obesity on Mounjaro injections presents to the emergency department complaining of left-sided chest pain that started today around midnight. Intensity of the pain is 10/10, sharp in character and sometimes radiating to the back and right shoulder. The pain increases with deep inspiration and chest palpation. The pain improved receiving nitroglycerin in the emergency department. She also complained of dizziness, headache and shortness on breath. Patient also was experiencing some leg heaviness. She did not report cough, fever or chills. She did not report any acute gastrointestinal or genitourinary symptoms. She has been tobacco smoker but quit a month ago. She denied alcohol abuse or illicit drug use such as cocaine. Her family history significant for heart disease on her mother. Also, her younger brother from heart issues at age 23. She said that the only medication she is currently taking is pantoprazole and Mounjaro injections for weight loss. In the ED, she was initially found to have a blood pressure 198/77 and a mild degree of sinus tachycardia. Her oxygen saturation is normal on room air. Blood workup showed essentially normal CBC. There are no significant electrolyte imbalances except for hypomagnesemia of 1.3. Her LFTs are elevated with normal bilirubin and lipase. test is negative. Viral testing for COVID-19, influenza and RSV is negative. Chest CTA showed no central pulmonary embolism. CXR is negative. ECG showed sinus tachycardia with LVH changes. ED Tx: Magnesium 2 g IV, nitroglycerin 0.4 mg sublingual, aspirin 325 mg p.o., Zofran 4 mg IV Review of Systems Review of Systems: All 12 systems were reviewed and normal except as noted in HPI. 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 Meds Allergies Allergy/AdvReac Type Severity Reaction Status Date / Time latex Allergy Hives Verified 09/06/25 11:57 Active Medications: Current Medications Acetaminophen (Acetaminophen 325 Mg Tablet) 975 mg PO Q6H PRN PRN Reason: Pain, Mild 1-3,fever,headache Aspirin (Aspirin 325 Mg Tablet) 325 mg PO ONCE STA Stop: 09/06/25 19:49 Aspirin (Aspirin Enteric Coated 81 Mg Tablet.Dr) 81 mg PO DAILY [place] Calcium Carbonate (Calcium Carbonate 750 Mg Tab.Chew) 750 mg PO Q4H PRN PRN Reason: Heartburn Carvedilol (Carvedilol 6.25 Mg Tablet) 6.25 mg PO BID [facility]; Protocol Enoxaparin Sodium (Enoxaparin Sodium 40 Mg/0.4 Ml Syringe) 40 mg SUBCUT Q12H [facility] Magnesium Hydroxide (Milk Of Magnesia 30 Ml Oral.Susp) 30 ml PO DAILY PRN PRN Reason: Constipation Melatonin (Melatonin 3 Mg Tablet) 6 mg PO BEDTIME PRN PRN Reason: Insomnia Morphine Sulfate (Morphine Sulfate 4 Mg/Ml Cartridge) 2 mg IVPUSH Q4H PRN; Protocol PRN Reason: Chest Pain Nitroglycerin (Nitroglycerin 2 % Oint 1 Gm Packet) 1 inch TRANSDERMA BID@0900,1500 [facility] Sodium Chloride (0.9 % Sodium Chloride Flush 3 Ml Syringe) 3 ml IVFLUSH QSHIFT [facility] Home Medications ?Medication ?Instructions ?Recorded ?Confirmed ?Last Taken ?Type prazosin 1 mg capsule 1 mg PO BEDTIME 09/30/23 10/13/23 Unknown History sertraline 100 mg tablet 100 mg PO DAILY 09/30/23 10/13/23 Unknown History Physical Exam Vital Signs and Narrative: Vital Signs: Last Vital Signs Temp 98.3 F 09/06/25 19:40 Pulse 99 09/06/25 19:40 Resp 13 09/06/25 19:40 BP 134/80 09/06/25 19:40 Pulse Ox 99 09/06/25 19:40 O2 Del Method Room Air 09/06/25 19:40 BMI result Body Mass Index 48.2 General: Alert, oriented. Looks uncomfortable due to chest pain. Cooperative and pleasant. Afebrile. Obese. HEENT: Head normocephalic, atraumatic. PER, EOMI. Sclerae anicteric, conjunctiva clear. Oropharynx without erythema or exudate. Mucous membranes moist. Neck: Supple, or JVD. Heart: Regular rhythm, tachycardia, no murmurs rubs or gallops. Lungs: Clear to auscultation bilaterally. No wheezes, rales, or rhonchi. Normal respiratory effort. Abdomen: Soft, non tenderness, nondistended, normoactive bowel sounds. No hepatosplenomegaly, masses or masses. Extremities: Ankle edema noted. No tenderness to the lower extremities. Musculoskeletal: Full range of motion. No joint swelling, deformity, or tenderness. Normal muscle tone and strength. Skin: Warm/Dry. No pallor. No jaundice. Neurologic: Alert & oriented x4. Moving all extremities spontaneously. Normal speech. Psychological: Normal mood and affect. Thought process coherent. Results Labs 09/06/25 12:27 09/06/25 12:27 Labs: Laboratory Results - last 24 hr 09/06/25 12: MCV 80.8 MCH 27.2 MCHC 33.7 RDW 16.3 H Plt Count 330 MPV 8.9 L Immature Gran % (Auto) 0.4 Neut % (Auto) 66.6 Lymph % (Auto) 25.8 [place] % (Auto) 6.4 Eos % (Auto) 0.1 Baso % (Auto) 0.7 Lymph # (Auto) 2.3 [place] # (Auto) 0.6 Eos # (Auto) 0.0 Baso # (Auto) 0.1 Abs Immat Gran (auto) 0.04 H Absolute Neuts (auto) 5.9 Absolute Nucleated RBC 0.000 Nucleated RBC % (auto) 0.0 Anion Gap 16 Estim Creat Clear Calc 107.4 Estimated GFR 60 Random Glucose 90 Calcium 9.5 D Magnesium 1.3 L* Total Bilirubin 1.0 Direct Bilirubin 0.3 AST 67 H ALT 46 H Alkaline Phosphatase 129 H Troponin I High Sens 5.6 D NT-Pro-B Natriuret Pep 27.9 Total Protein 7.6 Albumin 4.2 Lipase 10 Beta HCG, Quant < 2 Influenza Type A (PCR) NEGATIVE Influenza Type B (PCR) NEGATIVE RSV RNA Qual (PCR) NEGATIVE SARS-CoV-2 RNA (RT-PCR) NEGATIVE Imaging Radiologist's Impressions: Impressions Chest X-Ray 09/06/25 12:32 IMPRESSION: No acute cardiopulmonary abnormality. Electronically signed by: Bhavik Villagomez MD 09/06/2025 12:39 PM [facility] Assessment and Plan (1) Chest pain: Qualifiers: Chest pain type: unspecified Qualified Code(s): R07.9 - Chest pain, unspecified Status: Inactive (2) Uncontrolled hypertension: Status: Acute (3) Hypomagnesemia: Status: Acute Plan Dannytye Dameon Joshua 40 y/o woman with a PMHx significant for untreated essential hypertension, GERD, obesity and significant family history of heart disease (mother had open heart surgery in her 40s and younger brother diet 23 years old) who presents with: Chest pain. Telemetry. Pulse oximetry. Continue aspirin 81 mg p.o. daily. Apply nitroglycerin ointment. Recheck troponin, hemoglobin A1c and lipid panel. Check TTE. Cardiology consult. Uncontrolled hypertension, improving. Not currently on home meds for this. We will be receiving nitroglycerin. Start therapy with carvedilol. Continue to monitor blood pressure closely. Hypomagnesemia. Replete as needed. Continue to monitor magnesium level. GERD. Continue pantoprazole. Morbid obesity (class III). BMI 48.3 kg/M2. On Mounjaro injections. Code status: Full DVT prophylaxis: Lovenox Patient will need hospitalization for at least 2 midnights for chest pain in the setting of multiple risk factors for ACS including uncontrolled hypertension management and treatment with continuous cardiac monitoring, aspirin, nitroglycerin, beta-blockers and evaluation by subspecialty. Quality Stroke Does the patient have a stroke diagnosis?: No VTE Prior VTE?: No VTE Risk Level:: Medical - moderate - high VTE Device Contraindication: Treatment Not Indicated VTE Drug Contraindication: N/A - Med Ordered
[2025-09-06] MEDS: Nitroglycerin 2 % Oint 1 GM Packet 1 INCH TRANSDERMA (20:04)
[2025-09-06] MEDS: Aspirin Enteric Coated 81 MG TABLET.DR PO (20:04)
[2025-09-06 20:32] LABS: Troponin-I High Sensitivity 10.7 ng/L (<3.5-17.0)
[2025-09-06] MEDS: 0.9 % Sodium Chloride Flush 3 ML SYRINGE IVFLUSH (21:06)
--- NOTE | 2025-09-06 21:29 | PHA.MEDREC ---
Pharmacy Consult ? Medication Reconciliation Pharmacy has completed the medication reconciliation. Spoke to patient to confirm medication list. Per patient, she takes mounjaro 7.5 mg weekly on tuesday. Last dose of medications was yesterday 09/05/25.
[2025-09-06 22:10] LABS: Magnesium 2.2 mg/dL (1.6-2.6)
[2025-09-07] VITALS (10 sets, daily range): BP systolic 126–144; BP diastolic 61–93; PULSE 70–94; RESP 15–20; TEMP 36.1–36.6; O2SAT 95–99
[2025-09-07 01:05] LABS: Cannabinoid Screen Urine Not Detected (Not Detect)
--- NOTE | 2025-09-07 07:00 | CA_ITS ---
Transthoracic Echocardiogram Patient (Last, First, Middle): Alverto Lewis Vn Gender: Female Date of : 1985 Age: 40 Procedure Date: 09/07/2025 Procedure Type: Transthoracic Echocardiogram [place] [facility] [place]: 170.18 cm Weight: 140.16 kg BSA: 2.43 m2 Heart Rate: 84 bpm BP: 144 / 71 mmHg Supervisor Type Bar And Segment: WILLA Referring MD: Cachorro Laura MD Chief Information Security Officer: Vitor Kelley MD Symptoms: Chest pain Study Quality: Adequate w/Contrast ECG Rhythm: Sinus Conclusions: - Essentially normal study Findings Procedure Information Contrast agent, definity, is being given per protocol without apparent complications. Left Ventricle Normal left ventricular size, thickness, and systolic function. The visually estimated ejection fraction is between 60-65%. Spectral Doppler is indicative of a normal filling pattern. Right Ventricle The right ventricle was not well visualized. Atria The left atrium is normal in size. Interatrial shunt cannot be excluded. The right atrium was not well visualized. Aortic Valve The aortic valve structure and function is likely normal. There is no aortic valve stenosis. There is no aortic valve regurgitation. Mitral Valve Normal mitral valve structure and function. There is trace mitral valve regurgitation. There is no mitral valve stenosis. Pulmonic Valve The pulmonic valve was not well visualized. Tricuspid Valve The tricuspid valve was not well visualized. Tricuspid regurgitation envelope is inadequate for calculation of right ventricular systolic pressure. Normal right atrial pressure. Great Vessels All visible segments of the aorta are normal in size. The pulmonary artery was not well visualized. There is no dilatation of the ascending aorta measuring 3.10 cm. Venous The inferior vena cava is normal in size and collapses greater than 50% with inspiration. Pericardium/Pleural There is no evidence of pericardial effusion. Prior Study Comparison No prior study available for comparison. Measurements 2D Linear Measurements IVSd: 0.97 0.6-0.9/0.6-1.0 cm LVIDd: 3.94 3.9-5.3/4.2-5.9 cm LVIDd Index: 1.62 2.4-3.2/2.2-3.1 cm/m2 LVIDs: 2.22 2.0-3.6 cm LVPWd: 0.96 0.7-1.1 cm LA Diam: 3.40 2.7-3.8/3.0-4.0 cm LAIDs Index: 1.40 1.5-2.3 cm/m2 LV Mass: 146.85 67-162/88-224 g LV Mass Index: 60.43 43-95/49-115 g/m2 LVOT Diam: 1.90 3.0+(-)1.3 cm 2D Systolic Function EF 4C: 58.70 >55% EF 2C: 61.90 >55% EF BiP: 60.20 >55% Mitral Valve MV Pk E: 0.90 MV PK A: 0.67 MV Decel Time: 157.00 E/A: 1.30 E'Lateral: 7.83 E'Medial: 7.40 E/E' Med: 12.20 E/E' Lat: 11.50 PHT: 46.00 MVA PHT: 4.78 Decel [place]: 5.73 Aortic Valve AoV Pk Valentin: 1.45 AoV Mn Valentin: 0.96 AoV VTI: 0.23 AoV Pk Grad: 8.00 Aov Mn Grad: 4.00 ADAN Cont.VTI: 2.71 LVOT LVOT Pk Valentin: 1.10 LVOT Mn Valentin: 0.77 LVOT VTI: 0.22 LVOT Pk Grad: 5.00 LVOT Mn Grad: 3.00 LVOT Diam: 1.90 LVOT Area: 2.84 Diastolic Function MV Pk E: 0.90 MV Pk A: 0.67 E/A: 1.30 E'Medial: 7.40 E/E' Med: 12.20 E' Laterial: 7.83 E/E' Lat: 11.50 Right Ventricle TAPSE (mm): 15.20 TVS' Valentin: 9.68 Tricuspid Valve RA Press: 3.00 Great Vessels Aorta Sinus of Valsalva: 2.50 2.0-3.5 cm Ao Asc: 3.10 2.1-3.4 cm Ao Arch: 2.50 Pulmonary Veins Pulm Vein S/D 1.40 Pulmonary Valve PV Pk Valentin: 1.02 Peak PV Grad: 4.00 Updated in Other Vendor System with Status of Final Vitor Kelley MD electronically signed on 09/08/2025 9:19:56 AM with status of Final
[2025-09-07 07:30] LABS: MANUAL DIFF FLAG NO
[2025-09-07 07:34] LABS: Hematocrit 39.1 % (37.0-47.0); Hemoglobin 13.1 g/dl (12.0-16.0); Imm Gran Abs Auto 0.01 X10*3/uL (0.00-0.03); Imm Gran Pct Auto 0.2 % (0.0-0.4); Lymphocytes Absolute Auto 1.9 X10*3/uL (1.2-4.9); Mean Corpuscular HGB Conc 33.5 g/dl (31.0-35.0); Mean Corpuscular Hemoglobin 27.2 pg (27.0-33.0); Mean Corpuscular Volume 81.1 fL (80.0-98.0); NRBC Abs Auto 0.000 X10*3/uL (0.0-0.012); NRBC Pct Auto 0.0 /100WBC (0.0-0.2); Platelet Count 294 X10*3/uL (160-400); Red Blood Count 4.82 X10*6/uL (4.20-5.50); White Blood Count 6.1 X10*3/uL (4.8-10.8)
--- NOTE | 2025-09-07 07:34 | HO.PM.IMPN ---
Subjective Subjective Date of Service: 09/07/25 Interval History: reports Headache and RUE, shoulder intermittent numbness, R leg extremities Review of Systems Review of Systems: Yes all other systems are reviewed and are negative Physical Exam Exam: Exam: General: AOx3, no acute distress Resp: CTA bilaterally CVS: S1, S2, RRR GI: +BS, NT, no distention Neuro: nonfocal neuro exam Vital Signs: Vital Signs: Last Vital Signs Temp 97.2 F 09/07/25 03:03 Pulse 94 09/07/25 03:03 Resp 16 09/07/25 03:03 BP 138/84 09/07/25 03:03 Pulse Ox 98 09/07/25 03:03 O2 Del Method Room Air 09/07/25 03:03 BMI result Body Mass Index 48.4 Objective Data Active Medications Acetaminophen (Acetaminophen 325 Mg Tablet) 975 mg PO Q6H PRN PRN Reason: Pain, Mild 1-3,fever,headache Aspirin (Aspirin Enteric Coated 81 Mg Tablet.Dr) 81 mg PO DAILY [facility] Last Admin: 09/06/25 20:04 Dose: 81 mg Documented By: MALI Calcium Carbonate (Calcium Carbonate 750 Mg Tab.Chew) 750 mg PO Q4H PRN PRN Reason: Heartburn Carvedilol (Carvedilol 6.25 Mg Tablet) 6.25 mg PO BID [facility]; Protocol Last Admin: 09/06/25 21:05 Dose: 6.25 mg Documented By: JAMI Enoxaparin Sodium (Enoxaparin Sodium 40 Mg/0.4 Ml Syringe) 40 mg SUBCUT Q12H [facility] Magnesium Hydroxide (Milk Of Magnesia 30 Ml Oral.Susp) 30 ml PO DAILY PRN PRN Reason: Constipation Melatonin (Melatonin 3 Mg Tablet) 6 mg PO BEDTIME PRN PRN Reason: Insomnia Last Admin: 09/06/25 21:09 Dose: 6 mg Documented By: JAMI Morphine Sulfate (Morphine Sulfate 4 Mg/Ml Cartridge) 2 mg IVPUSH Q4H PRN; Protocol PRN Reason: Chest Pain Last Admin: 09/06/25 23:29 Dose: 2 mg Documented By: JAMI Nitroglycerin (Nitroglycerin 2 % Oint 1 Gm Packet) 1 inch TRANSDERMA BID@0900,1500 [facility] Last Admin: 09/06/25 20:04 Dose: 1 inch Documented By: MALI Pantoprazole Sodium (Pantoprazole Sodium 40 Mg/10 Ml Vial) 40 mg IVPUSH DAILY@0630 [facility] Last Admin: 09/07/25 05:52 Dose: 40 mg Documented By: JAMI Sodium Chloride (0.9 % Sodium Chloride Flush 3 Ml Syringe) 3 ml IVFLUSH QSHIFT [facility] Last Admin: 09/06/25 21:06 Dose: 3 ml Documented By: JAMI Labs 09/07/25 07:24 09/07/25 07:24 Labs: Laboratory Results - last 24 hr 09/06/25 09/06/25 09/07/25 12: 20:02 00:33 MCV 80.8 MCH 27.2 MCHC 33.7 RDW 16.3 H Plt Count 330 MPV 8.9 L Immature Gran % (Auto) 0.4 Neut % (Auto) 66.6 Lymph % (Auto) 25.8 [place] % (Auto) 6.4 Eos % (Auto) 0.1 Baso % (Auto) 0.7 Lymph # (Auto) 2.3 [place] # (Auto) 0.6 Eos # (Auto) 0.0 Baso # (Auto) 0.1 Abs Immat Gran (auto) 0.04 H Absolute Neuts (auto) 5.9 Absolute Nucleated RBC 0.000 Nucleated RBC % (auto) 0.0 Anion Gap 16 Estim Creat Clear Calc 107.4 Estimated GFR 60 Random Glucose 90 Calcium 9.5 D Magnesium 1.3 L* 2.2 Total Bilirubin 1.0 Direct Bilirubin 0.3 AST 67 H ALT 46 H Alkaline Phosphatase 129 H Troponin I High Sens 5.6 D 10.7 D NT-Pro-B Natriuret Pep 27.9 Total Protein 7.6 Albumin 4.2 Lipase 10 Beta HCG, Quant < 2 Urine Opiates Screen POSITIVE H Ur Buprenorphine Scrn Not Detected Ur Oxycodone Screen Not Detected Urine Methadone Screen Not Detected Urine Fentanyl Screen Not Detected Ur Barbiturates Screen Not Detected Ur Phencyclidine Scrn Not Detected Ur Amphetamines Screen Not Detected U Benzodiazepines Scrn Not Detected Urine Cocaine Screen Not Detected U Marijuana (THC) Screen Not Detected Influenza Type A (PCR) NEGATIVE Influenza Type B (PCR) NEGATIVE RSV RNA Qual (PCR) NEGATIVE SARS-CoV-2 RNA (RT-PCR) NEGATIVE Assessment and Plan (1) Chest pain: Status: Acute Plan Pt is a 40-year-old female with unclear PMH, stated significant family history of cardiac comorbidities (patient unaware but states mother and brother and uncle were diagnosed with some cardiac issues), chronic joint pains, 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 Patient presents with atypical chest pain and neuropathy. Atypical chest pain Hypotensive urgency Patient's presentation of intermittent sharp chest pain is atypical. Possible untreated HTN TTE done awaiting read EKG and trop unremarkable Continue monitoring on telemetry Check electrolytes and replete to goal Right shoulder and right upper extremity paresthesias Right leg paresthesias Patient has multiple pinpoint slightly suggestive of fibromyalgia Start duloxetine, stop IV pain meds, scheduled Tylenol, lidocaine patch, Robaxin, Start gabapentin Brain MRI given severe headache Neurology consulted as we are unable to explain the etiology for her paresthesias PTOT Possible migraine headache/hypertensive urgency Start topiramate Morbid obesity BMI 48.4 Hold Mounjaro while inpatient Nutrition consult Full code DVT prophylaxis with Lovenox This note is constructed using voice recognition software. While every effort has been made to ensure accuracy, city assessor errors may have been included. Quality Stroke Does the patient have a stroke diagnosis?: No VTE Prior VTE?: No VTE Risk Level:: Medical - moderate - high VTE Device Contraindication: Treatment Not Indicated VTE Drug Contraindication: N/A - Med Ordered
[2025-09-07 07:54] LABS: Blood Urea Nitrogen 14 mg/dL (9-16); Calcium 9.3 mg/dL (8.4-10.2); Creatinine Clr Calc Pharmacy 99.0; Estimated Glomerular Filt Rate 54
[2025-09-07 07:55] LABS: Cholesterol 207 mg/dL (<200); HDL Cholesterol 66 mg/dL (>40); Triglycerides 96 mg/dL (<150)
[2025-09-07 08:03] LABS: Anion Gap 14 (12-20); Carbon Dioxide 21 mmol/L (22-29); Chloride 107 mmol/L (96-108); Potassium 4.1 mmol/L (3.3-5.1); Sodium 138 mmol/L (135-145)
[2025-09-07] MEDS: 0.9 % Sodium Chloride Flush 3 ML SYRINGE IVFLUSH ×2 (08:12→20:52)
[2025-09-07] MEDS: Aspirin Enteric Coated 81 MG TABLET.DR PO (08:13)
[2025-09-07] MEDS: Nitroglycerin 2 % Oint 1 GM Packet 1 INCH TRANSDERMA ×2 (08:17→15:15)
[2025-09-07 10:18] LABS: Reflex LDLD? No
--- NOTE | 2025-09-07 11:03 | MHC.CM.PN ---
DX Chest pain HTN Lives with family She is independent with all functional mobility PCp Rosamaria Donato A new HCP has been documented [facility] Home self care. Patient will arrange for transport home vs [facility]
--- NOTE | 2025-09-07 15:00 | PM.CNCAR ---
History of Present Illness History of Present Illness Date of Service: 09/07/25 Requesting physician: Leslie Purvis Consult reason: chest pain and other (Hypertension) Chief complaint: Uncontrolled hypertension ,chest pain Narrative: I was consulted to see this patient for precordial chest pain along with hypertension. Patient's study 10 year female who says recently has been told that she is slightly elevated blood pressure. 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 The pressure then persisted while she continued to work and when she went home after her shift she monitor blood pressure and noted that this was significantly elevated 170/100 range as per her. She had a concern and then the pain switched into sharp discomfort radiating to the back and she felt uncomfortable and came to the emergency room. When she came to the emergency room she had elevated blood pressures systolic 190 range continued to have chest pain. EKGs shows sinus tachycardia with nonspecific STT wave changes with LVH. She subsequently had repeat EKGs which shows improved ST-T changes but with suggestive of LVH. Her blood pressures improved with nitrates as well as started on carvedilol therapy. She continues to have that has mild chest pressure although the sharp chest pain is improved. However she tells me that she complains of pain in his right upper extremity and right cervical body in his right lower extremity along with numbness in her right leg. She has no neurologic findings. Cardiology consult was sought because of chest pain and high blood pressure. Review of Systems Constitutional: Constitutional: Denies chills, Denies fever(s), Reports snoring and Reports weight loss (On GLP 1 antagonist) Eyes: Eyes: Reports no additional eye complaints ENT: Reports system reviewed and no additional complaints, except as documented Cardiovascular: Cardiovascular: Reports chest pain at rest, Reports lightheadedness, Denies Loss of Consciousness, Denies dyspnea, Denies dyspnea on exertion, Denies orthopnea and Denies paroxysmal nocturnal dyspnea Respiratory: Respiratory: Denies dyspnea, Denies dyspnea on exertion and Reports snoring Gastrointestinal: Gastrointestinal: Reports no additional gastrointestinal complaints Genitourinary: Genitourinary: Reports no additional female genitourinary complaints Musculoskeletal: Musculoskeletal: Reports numbness Integumentary/Breasts: Skin/Breast: Reports system reviewed and no additional complaints, except as docu Neurologic: Reports numbness and Reports paresthesias Psychiatric: Psychiatric: Reports no additional psychiatric complaints Endocrine: Endocrine: Reports no additional endocrine complaints [facility] Past Medical History Medical History Fractured coccyx Depression Hypertension Surgical History Surgical History Hx of foot surgery Hx of cholecystectomy Social History Social History Household Members: Children Housing: Apartment Do you presently have visiting nurse or other home services: No Alcohol intake: current Alcohol intake frequency: a few times a week Patient Tobacco Use Status: Former Tobacco user service: No 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[employer], 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 Meds Allergies Allergy/AdvReac Type Severity Reaction Status Date / Time latex Allergy Hives Verified 09/06/25 11:57 Active Medications: Current Medications Acetaminophen (Acetaminophen 325 Mg Tablet) 975 mg PO Q6H [facility] Last Admin: 09/07/25 10:24 Dose: 975 mg Aspirin (Aspirin Enteric Coated 81 Mg Tablet.) 81 mg PO DAILY [facility] Last Admin: 09/07/25 08:13 Dose: 81 mg Calcium Carbonate (Calcium Carbonate 750 Mg Tab.Chew) 750 mg PO Q4H PRN PRN Reason: Heartburn Carvedilol (Carvedilol 6.25 Mg Tablet) 6.25 mg PO BID [facility]; Protocol Last Admin: 09/07/25 08:13 Dose: 6.25 mg Duloxetine HCl (Duloxetine Hcl 20 Mg Capsule.) 40 mg PO DAILY [facility] Last Admin: 09/07/25 14:10 Dose: 40 mg Enoxaparin Sodium (Enoxaparin Sodium 40 Mg/0.4 Ml Syringe) 40 mg SUBCUT Q12H [facility] Last Admin: 09/07/25 08:17 Dose: 40 mg Gabapentin (Gabapentin 100 Mg Capsule) 100 mg PO TID [facility] Lidocaine (Lidocaine 4 % Patch Adh..Patch) 2 patch TRANSDERMA DAILY [facility]; Protocol Magnesium Hydroxide (Milk Of Magnesia 30 Ml Oral.Susp) 30 ml PO DAILY PRN PRN Reason: Constipation Melatonin (Melatonin 3 Mg Tablet) 6 mg PO BEDTIME PRN PRN Reason: Insomnia Last Admin: 09/06/25 21:09 Dose: 6 mg Morphine Sulfate (Morphine Sulfate 4 Mg/Ml Cartridge) 2 mg IVPUSH Q4H PRN; Protocol PRN Reason: Chest Pain Last Admin: 09/07/25 13:46 Dose: 2 mg Nitroglycerin (Nitroglycerin 2 % Oint 1 Gm Packet) 1 inch TRANSDERMA BID@0900,1500 [facility] Last Admin: 09/07/25 08:17 Dose: 1 inch Pantoprazole Sodium (Pantoprazole Sodium 40 Mg/10 Ml Vial) 40 mg IVPUSH DAILY@0630 [facility] Last Admin: 09/07/25 05:52 Dose: 40 mg Sodium Chloride (0.9 % Sodium Chloride Flush 3 Ml Syringe) 3 ml IVFLUSH QSHIFT [facility] Last Admin: 09/07/25 08:12 Dose: 3 ml Topiramate (Topiramate 25 Mg Tablet) 25 mg PO DAILY [facility] Last Admin: 09/07/25 10:23 Dose: 25 mg Home Medications ?Medication ?Instructions ?Recorded ?Confirmed ?Last Taken ?Type pantoprazole 20 mg tablet,delayed 20 mg PO DAILY@0630 09/06/25 09/06/25 09/05/25 History release tirzepatide 7.5 mg/0.5 mL 7.5 mg subcut TU 09/06/25 09/06/25 09/03/25 History subcutaneous pen injector (Edwinuncameronro) Physical Exam Vital Signs: Vital Signs: Last Vital Signs Temp 97.2 F 09/07/25 12:00 Pulse 73 09/07/25 12:00 Resp 20 09/07/25 12:00 BP 144/71 H 09/07/25 12:00 Pulse Ox 99 09/07/25 12:00 O2 Del Method Room Air 09/07/25 12:00 BMI result Body Mass Index 48.4 Const: General: cooperative, comfortable, no acute distress, alert and awake Nutritional Appearance: obese Orientation/consciousness: patient oriented x3 HEENT: Head: Yes normocephalic and Yes atraumatic Neck: Neck: Yes trachea midline, Yes supple and Yes no JVD Resp: Effort & Inspection: normal respiratory effort Auscultation: clear to auscultation bilaterally Cardio: Jugular venous distension: no JVD Rate: regular rate Rhythm: regular rhythm Heart sounds: S1 normal heart sound present, S2 normal heart sound present, no click, no gallops, no murmurs and no rubs GI: Auscultation: normal bowel sounds Skin: General skin exam: no rashes or lesions noted Neuro: General: patient oriented x3 and no focal motor deficits Extrem: General: Yes no clubbing, cyanosis or edema Objective Labs and Meds 09/07/25 07:24 09/07/25 07:24 Lab results: Laboratory Results - last 24 hr 09/06/25 09/06/25 09/07/25 12: 20:02 00:33 WBC RBC Hgb Hct MCV MCH MCHC RDW Plt Count MPV Immature Gran % (Auto) Neut % (Auto) Lymph % (Auto) [place] % (Auto) Eos % (Auto) Baso % (Auto) Lymph # (Auto) [place] # (Auto) Eos # (Auto) Baso # (Auto) Abs Immat Gran (auto) Absolute Neuts (auto) Absolute Nucleated RBC Nucleated RBC % (auto) Sodium Potassium Chloride Carbon Dioxide Anion Gap BUN Creatinine Estim Creat Clear Calc Estimated GFR Random Glucose Estimat Average Glucose Hemoglobin A1c % Calcium Magnesium 2.2 Troponin I High Sens 10.7 D NT-Pro-B Natriuret Pep 27.9 Triglycerides Cholesterol LDL Cholesterol, Calc HDL Cholesterol Lipase 10 Beta HCG, Quant < 2 Urine Opiates Screen POSITIVE H Ur Buprenorphine Scrn Not Detected Ur Oxycodone Screen Not Detected Urine Methadone Screen Not Detected Urine Fentanyl Screen Not Detected Ur Barbiturates Screen Not Detected Ur Phencyclidine Scrn Not Detected Ur Amphetamines Screen Not Detected U Benzodiazepines Scrn Not Detected Urine Cocaine Screen Not Detected U Marijuana (THC) Screen Not Detected 09/07/25 07:24 WBC 6.1 RBC 4.82 Hgb 13.1 Hct 39.1 MCV 81.1 MCH 27.2 MCHC 33.5 RDW 16.3 H Plt Count 294 MPV 9.1 L Immature Gran % (Auto) 0.2 Neut % (Auto) 59.7 Lymph % (Auto) 31.0 [place] % (Auto) 7.1 Eos % (Auto) 1.2 Baso % (Auto) 0.8 Lymph # (Auto) 1.9 [place] # (Auto) 0.4 Eos # (Auto) 0.1 Baso # (Auto) 0.1 Abs Immat Gran (auto) 0.01 Absolute Neuts (auto) 3.6 Absolute Nucleated RBC 0.000 Nucleated RBC % (auto) 0.0 Sodium 138 Potassium 4.1 D Chloride 107 Carbon Dioxide 21 L Anion Gap 14 BUN 14 Creatinine 1.12 Estim Creat Clear Calc 99.0 Estimated GFR 54 Random Glucose 82 Estimat Average Glucose 117 Hemoglobin A1c % 5.7 Calcium 9.3 Magnesium Troponin I High Sens NT-Pro-B Natriuret Pep Triglycerides 96 Cholesterol 207 H LDL Cholesterol, Calc 122 H HDL Cholesterol 66 Lipase Beta HCG, Quant Urine Opiates Screen Ur Buprenorphine Scrn Ur Oxycodone Screen Urine Methadone Screen Urine Fentanyl Screen Ur Barbiturates Screen Ur Phencyclidine Scrn Ur Amphetamines Screen U Benzodiazepines Scrn Urine Cocaine Screen U Marijuana (THC) Screen Assessment and Plan (1) Chest pain: Qualifiers: Chest pain type: unspecified Qualified Code(s): R07.9 - Chest pain, unspecified Status: Acute Her chest pain is atypical for acute myocardial ischemia or acute coronary syndrome. Probably could be related to acutely elevated blood pressure with subendocardial ischemia from LV stress. Although currently she continues to have chest pressure with improved blood pressure and this probably points to noncardiac causes musculoskeletal chest pain. Her troponins are negative. She will need an echocardiogram. She needs better control of blood pressure, see below. No inpatient other testing is indicated. (2) Uncontrolled hypertension: Status: Acute Uncontrolled hypertension this patient could be related to untreated or on diagnose sleep apnea. This needs to be worked up. She would benefit from continued weight loss. Agree with carvedilol as antihypertensive. Would also consider adding valsartan 80 mg b.i.d. to her regimen for better blood pressure control. Low-salt diet was discussed. She is having some right-sided body paresthesias and should consider neurologic imaging. From cardiac perspective will follow up as outpatient. Will sign of the case. Thank you for allowing me to partake in her care Procedures Date of Service Date of Service: 09/07/25
[2025-09-08 02:16] VITALS: BP 134/89; PULSE 82; RESP 16; TEMP 36.1; O2SAT 99
[2025-09-08 06:13] LABS: MANUAL DIFF FLAG NO
[2025-09-08 06:19] LABS: Hematocrit 39.7 % (37.0-47.0); Hemoglobin 12.8 g/dl (12.0-16.0); Imm Gran Abs Auto 0.02 X10*3/uL (0.00-0.03); Imm Gran Pct Auto 0.4 % (0.0-0.4); Lymphocytes Absolute Auto 2.1 X10*3/uL (1.2-4.9); Mean Corpuscular HGB Conc 32.2 g/dl (31.0-35.0); Mean Corpuscular Hemoglobin 26.8 pg (27.0-33.0); Mean Corpuscular Volume 83.1 fL (80.0-98.0); NRBC Abs Auto 0.000 X10*3/uL (0.0-0.012); NRBC Pct Auto 0.0 /100WBC (0.0-0.2); Platelet Count 289 X10*3/uL (160-400); Red Blood Count 4.78 X10*6/uL (4.20-5.50); White Blood Count 5.4 X10*3/uL (4.8-10.8)
[2025-09-08 06:35] LABS: Alanine Aminotransferase 70 U/L (0-31); Albumin Level 3.6 g/dL (3.5-5.0); Alkaline Phosphatase 168 U/L (39-117); Anion Gap 12 (12-20); Aspartate Amino Transferase 65 U/L (5-31); Blood Urea Nitrogen 14 mg/dL (9-16); Calcium 9.2 mg/dL (8.4-10.2); Carbon Dioxide 22 mmol/L (22-29); Chloride 108 mmol/L (96-108); Creatinine Clr Calc Pharmacy 102.7; Estimated Glomerular Filt Rate 56; Magnesium 2.2 mg/dL (1.6-2.6); Potassium 4.4 mmol/L (3.3-5.1); Sodium 138 mmol/L (135-145); Total Protein 6.8 g/dL (6.5-8.0)
[2025-09-08 07:42] VITALS: BP 133/85; PULSE 68; RESP 16; TEMP 36.4; O2SAT 98
--- NOTE | 2025-09-08 07:47 | HO.PM.IMPN ---
Subjective Subjective Date of Service: 09/08/25 Physical Exam Vital Signs: Vital Signs: Last Vital Signs Temp 97.5 F 09/08/25 07:42 Pulse 68 09/08/25 07:42 Resp 16 09/08/25 07:42 BP 133/85 09/08/25 07:42 Pulse Ox 98 09/08/25 07:42 O2 Del Method Room Air 09/08/25 07:42 BMI result Body Mass Index 48.4 Objective Data Active Medications Acetaminophen (Acetaminophen 325 Mg Tablet) 975 mg PO Q6H [facility] Last Admin: 09/08/25 03:31 Dose: Not Given Documented By: PRASHANTH Non-Admin Reason: Patient Asleep Aspirin (Aspirin Enteric Coated 81 Mg Tablet.) 81 mg PO DAILY [facility] Last Admin: 09/07/25 08:13 Dose: 81 mg Documented By: GLORIA Calcium Carbonate (Calcium Carbonate 750 Mg Tab.Chew) 750 mg PO Q4H PRN PRN Reason: Heartburn Carvedilol (Carvedilol 6.25 Mg Tablet) 6.25 mg PO BID [facility]; Protocol Last Admin: 09/07/25 20:48 Dose: 6.25 mg Documented By: PRASHANTH Docusate Sodium (Docusate Sodium 100 Mg Capsule) 100 mg PO BID PRN PRN Reason: Constipation Duloxetine HCl (Duloxetine Hcl 20 Mg Capsule.) 40 mg PO DAILY [facility] Last Admin: 09/07/25 14:10 Dose: 40 mg Documented By: GLORIA Enoxaparin Sodium (Enoxaparin Sodium 40 Mg/0.4 Ml Syringe) 40 mg SUBCUT Q12H [facility] Last Admin: 09/07/25 20:49 Dose: 40 mg Documented By: PRASHANTH Gabapentin (Gabapentin 100 Mg Capsule) 100 mg PO TID [facility] Last Admin: 09/07/25 20:48 Dose: 100 mg Documented By: PRASHANTH Hydralazine HCl (Hydralazine Hcl 20 Mg/Ml Vial) 5 mg IVPUSH Q6H PRN; Protocol PRN Reason: SBP > 160 Lidocaine (Lidocaine 4 % Patch Adh..Patch) 2 patch TRANSDERMA DAILY [facility]; Protocol Losartan Potassium (Losartan Potassium 50 Mg Tablet) 50 mg PO BID [facility]; Protocol Last Admin: 09/07/25 20:48 Dose: 50 mg Documented By: PRASHANTH Magnesium Hydroxide (Milk Of Magnesia 30 Ml Oral.Susp) 30 ml PO DAILY PRN PRN Reason: Constipation Melatonin (Melatonin 3 Mg Tablet) 6 mg PO BEDTIME PRN PRN Reason: Insomnia Last Admin: 09/06/25 21:09 Dose: 6 mg Documented By: JAMI Methocarbamol (Methocarbamol 750 Mg Tablet) 750 mg PO TID [facility] Last Admin: 09/07/25 20:48 Dose: 750 mg Documented By: PRASHANTH Polyethylene Glycol (Polyethylene Glycol 3350 17 Gm Powd.Pack) 17 gm PO DAILY [facility] Last Admin: 09/07/25 15:46 Dose: 17 gm Documented By: GLORIA Sodium Chloride (0.9 % Sodium Chloride Flush 3 Ml Syringe) 3 ml IVFLUSH QSHIFT [facility] Last Admin: 09/07/25 20:52 Dose: 3 ml Documented By: PRASHANTH Topiramate (Topiramate 25 Mg Tablet) 25 mg PO DAILY [facility] Last Admin: 09/07/25 10:23 Dose: 25 mg Documented By: GLORIA Labs 09/08/25 05:48 09/08/25 05:48 Labs: Laboratory Results - last 24 hr 09/07/25 09/08/25 07:24 05:48 MCV 83.1 MCH 26.8 L MCHC 32.2 RDW 16.2 H Plt Count 289 MPV 9.2 L Immature Gran % (Auto) 0.4 Neut % (Auto) 44.5 L Lymph % (Auto) 38.3 [place] % (Auto) 12.0 H Eos % (Auto) 4.1 H Baso % (Auto) 0.7 Lymph # (Auto) 2.1 [place] # (Auto) 0.7 Eos # (Auto) 0.2 Baso # (Auto) 0.0 Abs Immat Gran (auto) 0.02 Absolute Neuts (auto) 2.4 Absolute Nucleated RBC 0.000 Nucleated RBC % (auto) 0.0 Anion Gap 14 12 Estim Creat Clear Calc 99.0 102.7 Estimated GFR 54 56 Random Glucose 82 81 Estimat Average Glucose 117 Hemoglobin A1c % 5.7 Calcium 9.3 9.2 Magnesium 2.2 Total Bilirubin 0.7 AST 65 H ALT 70 H Alkaline Phosphatase 168 H Total Protein 6.8 Albumin 3.6 Triglycerides 96 Cholesterol 207 H LDL Cholesterol, Calc 122 H HDL Cholesterol 66 Quality Stroke Does the patient have a stroke diagnosis?: No VTE Prior VTE?: No VTE Risk Level:: Medical - moderate - high VTE Device Contraindication: Treatment Not Indicated VTE Drug Contraindication: N/A - Med Ordered
[2025-09-08] MEDS: 0.9 % Sodium Chloride Flush 3 ML SYRINGE IVFLUSH (08:55)
[2025-09-08] MEDS: Aspirin Enteric Coated 81 MG TABLET.DR PO (08:55)
[2025-09-08 08:57] VITALS: BP 133/85; PULSE 88
[2025-09-08] MEDS: Lidocaine 4 % Patch ADH..PATCH 2 PATCH TRANSDERMA (08:58)
[2025-09-08 11:39] VITALS: BP 127/78; PULSE 66; RESP 16; TEMP 36.3; O2SAT 99
--- NOTE | 2025-09-08 12:01 | PM.DS ---
DS: Providers Provider Date of admission: 09/06/25 19:20 Date of discharge: 09/08/25 Primary care physician: Rosamaria Donato MD Consults: 09/06/25 19:49 Consult to Cardiology Routine Consulting Provider: [facility] Reason for consultation: Chest pain, uncontrolled HTN Has provider been notified: No 09/07/25 12:39 Consult to Neurology Routine Consulting Provider: [facility] Reason for consultation: Paresthesias, ?fibromylagia DS: Diagnosis Discharge Diagnosis (1) Chest pain: Status: Acute DS: Summary Hospital Course Time spent discussing smoking cessation with patient: more than 10 minutes Status at Discharge Cognitive/behavioral status at discharge: Chief Complaint: Chest pain Alverto Lewis 40 years old woman with past medical history significant for essential hypertension not currently on hypertensive meds, GERD and obesity on Mounjaro injections presents to the emergency department complaining of left-sided chest pain that started today around midnight. Intensity of the pain is 10/10, sharp in character and sometimes radiating to the back and right shoulder. The pain increases with deep inspiration and chest palpation. The pain improved receiving nitroglycerin in the emergency department. She also complained of dizziness, headache and shortness on breath. Patient also was experiencing some leg heaviness. She did not report cough, fever or chills. She did not report any acute gastrointestinal or genitourinary symptoms. She has been tobacco smoker but quit a month ago. She denied alcohol abuse or illicit drug use such as cocaine. Her family history significant for heart disease on her mother. Also, her younger brother from heart issues at age 23. She said that the only medication she is currently taking is pantoprazole and Mounjaro injections for weight loss. In the ED, she was initially found to have a blood pressure 198/77 and a mild degree of sinus tachycardia. Her oxygen saturation is normal on room air. Blood workup showed essentially normal CBC. There are no significant electrolyte imbalances except for hypomagnesemia of 1.3. Her LFTs are elevated with normal bilirubin and lipase. test is negative. Viral testing for COVID-19, influenza and RSV is negative. Chest CTA showed no central pulmonary embolism. CXR is negative. ECG showed sinus tachycardia with LVH changes. ED Tx: Magnesium 2 g IV, nitroglycerin 0.4 mg sublingual, aspirin 325 mg p.o., Zofran 4 mg IV Hospital course: Discharge Diagnoses: - Atypical chest pain - Hypertensive urgency - Complicated migraine - Neuropathic pain / suspected fibromyalgia - Morbid obesity (BMI 48.4) Hospital Course The patient is a 40 year old female with unclear past medical history and reported significant family history of cardiac disease, who presented with intermittent sharp chest pain and right?sided paresthesias. Chest pain was atypical in nature. Initial cardiac workup including EKG and serial troponins was unremarkable. The patient was monitored on telemetry without acute events. A transthoracic echocardiogram was obtained; final read was pending at the time of discharge. Blood pressures were elevated on presentation, concerning for hypertensive urgency, likely exacerbated by pain and headache. Blood pressure improved with medical management. The patient reported right shoulder, right upper extremity, and right leg paresthesias along with severe headache. Given unclear etiology, Neurology was consulted. Brain CT was ordered due to severe headache to rule out intracranial pathology which was unremarkable for any acute processes. Findings were felt to be consistent with possible complicated migraine and neuropathic pain. Multiple tender pain points raised concern for fibromyalgia. Pain management was transitioned to a non opioid regimen. The patient was started on duloxetine, gabapentin, scheduled acetaminophen, lidocaine patch, and methocarbamol and patient reports significant relief and stated that this is the best sleep she has had in a while. Topiramate was initiated for migraine prophylaxis. Physical and occupational therapy were consulted and was deemed not necessary. The patient has morbid obesity (BMI 48.4). Tirzepatide (Mounjaro) was held during hospitalization. Nutrition services were consulted. At the time of discharge, the patient was clinically stable with improvement in pain and no evidence of acute cardiac pathology. Discharge Medications - Duloxetine - Gabapentin - Topiramate - Acetaminophen (scheduled) - Methocarbamol (Robaxin) - Lidocaine patch (Medication doses and frequency per medication reconciliation) Discharge Condition Stable Disposition Home Follow Up - Primary care physician - Neurology - Review final TTE results as outpatient Discharge Instructions - Take medications as prescribed - Avoid NSAIDs unless approved - Monitor blood pressure at home if able - Return for chest pain, shortness of breath, new neurologic symptoms, or severe/worsening headache Code Status Full Code - Create a patient?friendly discharge summary Functional status at discharge: independent ambulation Overall status at discharge: patient is back to baseline Time Attestation Discharge Coordination Time (in mins): 75 Quality: Safe Use of Opioids Does Pt have an Active Cancer Diagnosis on the Problem List?: No Quality: Stroke Does the patient have a stroke diagnosis?: No Physical Exam Exam: Exam: General: AOx3, no acute distress Resp: CTA bilaterally CVS: S1, S2, RRR GI: +BS, NT, no distention Neuro: nonfocal neuro exam Vital Signs: Vital Signs: Last Vital Signs Temp 97.4 F 09/08/25 11:39 Pulse 66 09/08/25 11:39 Resp 16 09/08/25 11:39 BP 127/78 09/08/25 11:39 Pulse Ox 99 09/08/25 11:39 O2 Del Method Room Air 09/08/25 11:39 BMI result Body Mass Index 48.4 DS: Data Data Completed and Pending Labs on day of discharge: Laboratory Results - last 24 hr 09/08/25 05:48 WBC 5.4 RBC 4.78 Hgb 12.8 Hct 39.7 MCV 83.1 MCH 26.8 L MCHC 32.2 RDW 16.2 H Plt Count 289 MPV 9.2 L Immature Gran % (Auto) 0.4 Neut % (Auto) 44.5 L Lymph % (Auto) 38.3 [place] % (Auto) 12.0 H Eos % (Auto) 4.1 H Baso % (Auto) 0.7 Lymph # (Auto) 2.1 [place] # (Auto) 0.7 Eos # (Auto) 0.2 Baso # (Auto) 0.0 Abs Immat Gran (auto) 0.02 Absolute Neuts (auto) 2.4 Absolute Nucleated RBC 0.000 Nucleated RBC % (auto) 0.0 Sodium 138 Potassium 4.4 Chloride 108 Carbon Dioxide 22 Anion Gap 12 BUN 14 Creatinine 1.08 Estim Creat Clear Calc 102.7 Estimated GFR 56 Random Glucose 81 Calcium 9.2 Magnesium 2.2 Total Bilirubin 0.7 AST 65 H ALT 70 H Alkaline Phosphatase 168 H Total Protein 6.8 Albumin 3.6 Discharge Plan Discharge Anticipated Discharge Date/Time: 09/08/25 11:52 Patient Disposition: Home, Self-Care Discharge Diagnosis: Hypertensive urgency, complicated migraine, fibromyalgia Referrals: [facility] [Outside] - 1 Week Rosamaria Donato MD [Primary Care Provider, Internal Medicine] - 1 Week Alex Sims MD [Physician, Cardiology] - 1 Week Discharge Medications: New methocarbamol 750 mg Tablet 750 mg PO TID 15 Days Qty: 45 0RF carvedilol 6.25 mg Tablet 6.25 mg PO BID 30 Days Qty: 60 3RF Protocol: Hold for SBP/HR < HOLD for SBP < : 90 HOLD for HR < : 60 losartan 50 mg Tablet 50 mg PO BID 30 Days Qty: 60 3RF Protocol: Hold for SBP< HOLD for SBP < : 90 acetaminophen 325 mg Tablet 975 mg PO Q6H 30 Days Qty: 360 3RF aspirin 81 mg Tablet,Delayed Release (Dr/Ec) 81 mg PO DAILY 30 Days Qty: 30 3RF duloxetine 20 mg Capsule,Delayed Release(Dr/Ec) 40 mg PO DAILY 30 Days Qty: 60 3RF gabapentin 100 mg Capsule 100 mg PO TID 30 Days Qty: 90 3RF topiramate 25 mg Tablet 25 mg PO DAILY 30 Days Qty: 30 3RF lidocaine [Lidocaine Pain Relief] 4 % Adhesive Patch,Medicated 2 patch transdermal DAILY 30 Days Qty: 60 3RF Protocol: Apply to: Apply to: affected area Continued pantoprazole 20 mg tablet,delayed release (DR/EC) 20 mg PO DAILY@0630 Mounjaro 7.5 mg/0.5 mL pen injector 7.5 mg subcut TU Discharge Orders: Discharge Order (Routine); Ordered 09/08/25 Ordered By: Leslie Purvis Diet: Low salt diet Activity on Discharge: As tolerated Stand Alone Forms: Patient Portal Discharge page, Work/School Release Print Language: Yi Care Plan Goals: Your Conditions You were treated for very high blood pressure, a complicated migraine, and fibromyalgia, which can all cause pain, fatigue, and neurologic symptoms. Your symptoms improved with treatment, and you are safe to go home today. Blood Pressure Care - Take your blood pressure medicines exactly as prescribed, at the same time each day. - Check your blood pressure at home if you have a cuff and keep a log. - Limit salt in your diet and avoid processed foods. - Avoid NSAIDs (like ibuprofen) unless approved, as they can raise blood pressure. - Avoid smoking and limit caffeine. Migraine Care - Take your migraine medications as directed at the first sign of headache. - Rest in a dark, quiet room during migraines. - Avoid known triggers such as lack of sleep, dehydration, stress, or skipped meals. - Drink plenty of fluids. Fibromyalgia Care - Take pain or nerve medications as prescribed. - Gentle daily activity (walking, stretching) can reduce pain and stiffness. - Good sleep habits are important?try to go to bed and wake up at the same time daily. - Stress management (deep breathing, relaxation techniques) may help symptoms. When to Seek Immediate Medical Care Call 911 or go to the emergency room if you have: - Chest pain, shortness of breath, or fainting - Severe or worsening headache not relieved by medication - New weakness, numbness, trouble speaking, or vision changes - Blood pressure higher than 180/120 with symptoms - Confusion or severe dizziness Follow Up Care - Follow up with your primary care doctor within 1 week. - Bring your medication list and blood pressure readings to appointments. General Health Tips - Take medications as prescribed?do not stop them suddenly. - Stay hydrated and eat regular, balanced meals. - Ask for help if pain or symptoms interfere with daily life. Health Concerns: See above Plan of Treatment: See above Assessment: See above
--- NOTE | 2025-09-08 12:43 | MHC.CM.PN ---
Patient discharged to home self care. An Uber was arranged for transport home.
--- NOTE | 2025-09-08 13:18 | PM.NEUROCN ---
History of Present Illness Data of Consult Service Date: 09/08/25 Primary Care Provider: Rosamaria Donato MD [facility] Reason for consult: Numbness and heaviness 40 years old woman who probably has underlying migraine and anxiety disorder, with untreated hypertension, was having left-sided chest pain that was from left upper chest to her back. She started feeling anxious and then having other symptoms of dizziness. She was also having headache which was happening now and then. At 1 point, she noted that her right side was numb and weak. Now she was feeling better with resolution of symptoms. There was no recent cold or flu-like illness or trauma. Review of Systems Constitutional: Constitutional: Reports as per HPI [facility] Past Medical History Medical History Fractured coccyx Depression Hypertension Surgical History Surgical History Hx of foot surgery Hx of cholecystectomy Social History Social History Household Members: Children Housing: Apartment Do you presently have visiting nurse or other home services: No Alcohol intake: current Alcohol intake frequency: a few times a week Patient Tobacco Use Status: Former Tobacco user service: No Current occupation: [employer], 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 Meds Allergies Allergy/AdvReac Type Severity Reaction Status Date / Time latex Allergy Hives Verified 09/06/25 11:57 Active Medications: Current Medications Acetaminophen (Acetaminophen 325 Mg Tablet) 975 mg PO Q6H COUNTS INCLUDE 234 BEDS AT THE [facility] Last Admin: 09/08/25 08:56 Dose: 975 mg Aspirin (Aspirin Enteric Coated 81 Mg Tablet.) 81 mg PO DAILY COUNTS INCLUDE 234 BEDS AT THE [facility] Last Admin: 09/08/25 08:55 Dose: 81 mg Calcium Carbonate (Calcium Carbonate 750 Mg Tab.Chew) 750 mg PO Q4H PRN PRN Reason: Heartburn Carvedilol (Carvedilol 6.25 Mg Tablet) 6.25 mg PO BID COUNTS INCLUDE 234 BEDS AT THE [facility]; Protocol Last Admin: 09/08/25 08:57 Dose: 6.25 mg Docusate Sodium (Docusate Sodium 100 Mg Capsule) 100 mg PO BID PRN PRN Reason: Constipation Duloxetine HCl (Duloxetine Hcl 20 Mg Capsule.) 40 mg PO DAILY COUNTS INCLUDE 234 BEDS AT THE [facility] Last Admin: 09/08/25 08:56 Dose: 40 mg Enoxaparin Sodium (Enoxaparin Sodium 40 Mg/0.4 Ml Syringe) 40 mg SUBCUT Q12H COUNTS INCLUDE 234 BEDS AT THE [facility] Last Admin: 09/08/25 08:58 Dose: 40 mg Gabapentin (Gabapentin 100 Mg Capsule) 100 mg PO TID COUNTS INCLUDE 234 BEDS AT THE [facility] Last Admin: 09/08/25 08:56 Dose: 100 mg Hydralazine HCl (Hydralazine Hcl 20 Mg/Ml Vial) 5 mg IVPUSH Q6H PRN; Protocol PRN Reason: SBP > 160 Lidocaine (Lidocaine 4 % Patch Adh..Patch) 2 patch TRANSDERMA DAILY COUNTS INCLUDE 234 BEDS AT THE [facility]; Protocol Last Admin: 09/08/25 08:58 Dose: 2 patch Losartan Potassium (Losartan Potassium 50 Mg Tablet) 50 mg PO BID COUNTS INCLUDE 234 BEDS AT THE [facility]; Protocol Last Admin: 09/08/25 08:57 Dose: 50 mg Magnesium Hydroxide (Milk Of Magnesia 30 Ml Oral.Susp) 30 ml PO DAILY PRN PRN Reason: Constipation Melatonin (Melatonin 3 Mg Tablet) 6 mg PO BEDTIME PRN PRN Reason: Insomnia Last Admin: 09/06/25 21:09 Dose: 6 mg Methocarbamol (Methocarbamol 750 Mg Tablet) 750 mg PO TID COUNTS INCLUDE 234 BEDS AT THE [facility] Last Admin: 09/08/25 08:57 Dose: 750 mg Polyethylene Glycol (Polyethylene Glycol 3350 17 Gm Powd.Pack) 17 gm PO DAILY COUNTS INCLUDE 234 BEDS AT THE [facility] Last Admin: 09/08/25 08:58 Dose: 17 gm Sodium Chloride (0.9 % Sodium Chloride Flush 3 Ml Syringe) 3 ml IVFLUSH QSHIFT COUNTS INCLUDE 234 BEDS AT THE [facility] Last Admin: 09/08/25 08:55 Dose: 3 ml Topiramate (Topiramate 25 Mg Tablet) 25 mg PO DAILY COUNTS INCLUDE 234 BEDS AT THE [facility] Last Admin: 09/08/25 08:57 Dose: 25 mg Home Medications ?Medication ?Instructions ?Recorded ?Confirmed ?Last Taken ?Type pantoprazole 20 mg tablet,delayed 20 mg PO DAILY@0630 09/06/25 09/06/25 09/05/25 History release tirzepatide 7.5 mg/0.5 mL 7.5 mg subcut TU 09/06/25 09/06/25 09/03/25 History subcutaneous pen injector (Wilder) Physical Exam Vital Signs: Vital Signs: Last Vital Signs Temp 97.4 F 09/08/25 11:39 Pulse 66 09/08/25 11:39 Resp 16 09/08/25 11:39 BP 127/78 09/08/25 11:39 Pulse Ox 99 09/08/25 11:39 O2 Del Method Room Air 09/08/25 11:39 BMI result Body Mass Index 48.4 Neuro: Other: Mental Status: Alert and oriented to person, place, and time. Normal attention. Normal spontaneous speech, fluency, and comprehension. No obvious issues with mood and memory. Affect is appropriate. Cranial Nerves: CN II: Visual henning full to confrontation, visual acuity intact. CN III, IV, : Pupils equal, round, reactive to light and accommodation. Extraocular movements are normal. CN V: Facial sensation is normal. CN VII: Facial movements symmetrical. CN VIII: Hearing intact to bedside conversation is normal. CN IX, X: Palate elevates symmetrically. CN XI: Shoulder shrug and head turn symmetrical. CN XII: Tongue midline without atrophy or fasciculations. Motor: No obvious arm or leg weakness. Plantars are flexor. Extrapyramidal: Full facial expressions and blinking. No rigidity. Movements are appropriate with no tremor or abnormality. Speech: Normal; no dysarthria or tremor. Results Labs 09/08/25 05:48 09/08/25 05:48 Labs: Short CBC 09/08/25 Range/Units 05:48 WBC 5.4 (4.8-10.8) X10*3/uL Hgb 12.8 (12.0-16.0) g/dl Hct 39.7 (37.0-47.0) % Plt Count 289 (160-400) X10*3/uL BMP 09/08/25 05:48 Sodium 138 Potassium 4.4 Chloride 108 Carbon Dioxide 22 BUN 14 Creatinine 1.08 Calcium 9.2 Liver Function 09/08/25 Range/Units 05:48 Total Bilirubin 0.7 (0.0-1.0) mg/dL AST 65 H (5-31) U/L ALT 70 H (0-31) U/L Alkaline Phosphatase 168 H (39-117) U/L Albumin 3.6 (3.5-5.0) g/dL CT head without contrast Comparison: None provided Findings: No intra-axial mass, midline shift, hydrocephalus, or acute hemorrhage. No significant atrophy-like change or white matter disease. There is no sinus or mastoid fluid. The orbits are within normal limits. No skull fracture. IMPRESSION: 1. No acute intracranial findings. CT angiography chest with contrast. 3D Postprocessing. Comparison: CT/[place] - CT CHEST ANGIOGRAPHY WITH IV CONTRAST - 07/19/25 11:59 EST Findings: The heart size is normal. RV/LV ratio is normal. The thoracic aorta is normal caliber. Evaluation for pulmonary artery embolism is limited by density of contrast within the pulmonary arterial tree. There is no central pulmonary embolus. The visualized thyroid and mediastinum are unremarkable. No consolidation or pleural effusion. Status post cholecystectomy. The bones are intact. IMPRESSION: Evaluation for pulmonary artery embolism is limited by density of contrast within the pulmonary arterial tree. There is no central pulmonary embolus. EXAMINATION: XR CHEST 2 VIEWS HISTORY: cp/sob COMPARISON: Comparison is made with the prior examination dated 07/19/2025. FINDINGS: AP and lateral views of the chest are submitted. The lungs are expanded and clear. There is no pleural effusion, pneumothorax, or pulmonary vascular congestion. The heart is normal in size. There is mild degenerative disc disease of the spine. XR/XR chest 2V IMPRESSION: No acute cardiopulmonary abnormality. Assessment and Plan (1) Migraine equivalent syndrome: Status: Acute 40 years old woman who probably has underlying history of migraine was not taking medicine for high blood pressure, which was high, and she started having left-sided chest pain. This resulted in significant anxiety and probably panic attack. She was also having a headache and then started having right-sided numbness and weakness. Now her symptoms were resolved. Exam was nonfocal. I recommend reassurance and education, treatment of eye blood pressure, maybe treatment of anxiety with a PRN medicine, an outpatient treatment for migraine. Procedures Date of Service Date of Service: 09/08/25
== END 2025-09-08 14:37 | disposition home or self-care (01) | DRG 199 ==
LOC: HO.ED 16:21 → HO.EDOVER 19:30 → HO.IMC 19:37
PROVIDERS: Physician Assistant; Physician Assistant Medical; Admitting Provider Internal Medicine; Emergency Provider Student in an Organized Health Care Education/Training Program; PCP Family Medicine; Visit Provider Student in an Organized Health Care Education/Training Program
DX: I16.0 Hypertensive urgency (principal); E66.813 Obesity, class 3; G43.109 Migraine with aura, not intractable, without status migrainosus; E83.42 Hypomagnesemia; K21.9 Gastro-esophageal reflux disease without esophagitis; M79.7 Fibromyalgia; I10 Essential (primary) hypertension; Z71.3 Dietary counseling and surveillance; Z68.42 Body mass index [BMI] 45.0-49.9, adult; F41.9 Anxiety disorder, unspecified; Z87.891 Personal history of nicotine dependence; Z20.822 Contact with and (suspected) exposure to COVID-19; Z79.899 Other long term (current) drug therapy
CPT/HCPCS: 36415; 70450; 71046; 71275; 80048; 80053; 80061; 80076; 80307; 83036; 83690; 83735; 83880; 84484; 84702; 85025; 87637; 93005; 93306; 99285; J1650; J2270; J2405; J2470; J3475; Q9957; Q9967

== ENCOUNTER → 2025-09-06 11:42 | Outpatient (BNV) | payer OTHER, SELFPAY | PROVIDERS: PCP Family Medicine; Visit Provider Internal Medicine Cardiovascular Disease | DX: R00.0 Tachycardia, unspecified (principal) | CPT/HCPCS: 93010 ==

== ENCOUNTER → 2025-09-06 11:57 | Outpatient (BNV) | payer OTHER, SELFPAY | PROVIDERS: PCP Family Medicine; Visit Provider Radiology Diagnostic Radiology | DX: R07.9 Chest pain, unspecified (principal); R06.02 Shortness of breath | CPT/HCPCS: 71046; 71275 ==

== ENCOUNTER 2025-09-06 19:20 | Outpatient (BNV) | payer OTHER, SELFPAY | END 2025-09-07 07:00 | PROVIDERS: Admitting Provider Internal Medicine; Emergency Provider Student in an Organized Health Care Education/Training Program; PCP Family Medicine; Visit Provider Internal Medicine Cardiovascular Disease | DX: R07.9 Chest pain, unspecified (principal) | CPT/HCPCS: 93306 ==

== ENCOUNTER 2025-09-06 19:20 | Outpatient (BNV) | payer OTHER, SELFPAY | END 2025-09-07 15:31 | PROVIDERS: Admitting Provider Internal Medicine; Emergency Provider Student in an Organized Health Care Education/Training Program; PCP Family Medicine; Visit Provider Radiology Diagnostic Radiology | DX: R20.2 Paresthesia of skin (principal) | CPT/HCPCS: 70450 ==

== ENCOUNTER → 2025-09-06 19:20 | Outpatient (BNV) | payer OTHER, SELFPAY | PROVIDERS: Admitting Provider Internal Medicine; Emergency Provider Student in an Organized Health Care Education/Training Program; PCP Family Medicine; Visit Provider Internal Medicine | DX: R07.9 Chest pain, unspecified (principal) | CPT/HCPCS: 99223; 99233 ==

== ENCOUNTER → 2025-09-06 19:20 | Outpatient (BNV) | payer OTHER, SELFPAY | PROVIDERS: Admitting Provider Internal Medicine; Emergency Provider Student in an Organized Health Care Education/Training Program; PCP Family Medicine; Visit Provider Internal Medicine Cardiovascular Disease | DX: R07.9 Chest pain, unspecified (principal); I10 Essential (primary) hypertension | CPT/HCPCS: 99222 ==

== ENCOUNTER → 2025-09-06 19:20 | Outpatient (BNV) | payer OTHER, SELFPAY | PROVIDERS: Admitting Provider Internal Medicine; Emergency Provider Student in an Organized Health Care Education/Training Program; PCP Family Medicine; Visit Provider Psychiatry & Neurology Neurology | DX: G43.109 Migraine with aura, not intractable, without status migrainosus (principal) | CPT/HCPCS: 99222 ==